=== PATIENT | female | born 1955 | race Caucasian/White ===

== ENCOUNTER → 2016-09-10 | Outpatient (CLI) | payer BC ==
[2016-09-10 18:25] LABS: Anion Gap 14 mmol/L; Blood Urea Nitrogen 17 mg/dL (7-17); Calcium 9.8 mg/dL (8.4-10.2); Carbon Dioxide 28 mmol/L (22-30); Chloride 99 mmol/L (98-107); Glucose 128 mg/dL (74-99); Non-African American GFR(MDRD) >60 (>60 ml/min/1.73 sqM); Potassium 4.2 mmol/L (3.5-5.1); Sodium 141 mmol/L (137-145)
[2016-09-10 18:32] LABS: INR 1.1 (<1.1); Prothrombin Time 10.8 sec (9.0-12.0)
== END ==
LOC: LABWHC1 17:18
PROVIDERS: ATTEND Radiology Diagnostic Radiology
DX: C64.9 Malignant neoplasm of unspecified kidney, except renal pelvis (principal)
CPT/HCPCS: 36415; 80048; 85610

== ENCOUNTER → 2016-11-13 | Outpatient (CLI) | payer BC ==
[2016-11-13 08:18] LABS: CH 31.8; CHCM 33.6; HCT 44.6 % (34.0-46.0); HDW 2.58; HGB 14.4 gm/dL (11.4-16.0); MCH 30.7 pg (25.0-35.0); MCHC 32.4 g/dL (31.0-37.0); Mean Platelet Volume 6.9; RDW 13.7 % (11.5-15.5); WBC 3.8 k/uL (3.8-10.6)
[2016-11-13 08:42] LABS: Appearance,Urine Clear (Clear); Bilirubin,Urine Negative (Negative); Glucose,Urine (UA) Negative (Negative); Ketones,Urine Negative (Negative); Leukocyte Esterase,Urine Negative (Negative); Nitrite,Urine Negative (Negative); PH, Urine 6.5 (5.0-8.0); Protein,Urine Negative (Negative); Specific Gravity,Urine 1.005 (1.001-1.035); UA Billing (MACRO vs. MICRO) CHEM; Urobilinogen,Urine <2.0 mg/dL (<2.0)
[2016-11-13 11:10] LABS: Hemoglobin A1C 6.1 % (4.2-6.1)
[2016-11-13 11:56] LABS: ALT 42 U/L (9-52); AST 29 U/L (14-36); Alkaline Phosphatase 59 U/L (38-126); Anion Gap 9 mmol/L; Blood Urea Nitrogen 12 mg/dL (7-17); Calcium 9.4 mg/dL (8.4-10.2); Carbon Dioxide 29 mmol/L (22-30); Chloride 104 mmol/L (98-107); Cholesterol 193 mg/dL (<200); Creatine Kinase 106 U/L (30-135); Glucose 128 mg/dL (74-99); HDL Cholesterol 61 mg/dL (40-60); Non-African American GFR(MDRD) >60 (>60 ml/min/1.73 sqM); Potassium 4.3 mmol/L (3.5-5.1); Sodium 142 mmol/L (137-145); Total Bilirubin 0.5 mg/dL (0.2-1.3); Total Protein 7.3 g/dL (6.3-8.2); Triglycerides 143 mg/dL (<150)
[2016-11-13 12:58] LABS: Vitamin B12 302 pg/mL (239-931)
== END | disposition home or self-care (01) ==
LOC: LABWHC1 07:49
PROVIDERS: ATTEND Family Medicine
DX: R03.0 Elevated blood-pressure reading, without diagnosis of hypertension (principal); E55.9 Vitamin D deficiency, unspecified; E78.5 Hyperlipidemia, unspecified; M79.89 Other specified soft tissue disorders; Z79.899 Other long term (current) drug therapy; R63.5 Abnormal weight gain
CPT/HCPCS: 36415; 80053; 80061; 81003; 82306; 82550; 82607; 82746; 83036; 83880; 84443; 85027

== ENCOUNTER → 2016-12-03 | Outpatient (CLI) | payer BC ==
--- NOTE | 2016-12-04 09:00 | US ---
EXAMINATION TYPE: US thyroid st tissue head/neck DATE OF EXAM: 12/03/2016 COMPARISON: NONE CLINICAL HISTORY: K11.9 Parathyroid swelling. Disease of salivary gland unspecified, order states att ention to parotid gland Patient states that she has ridge or thickening under ear along jaw line. Order states attention to p arotid gland areas. Scanned right and left parotid area, just below ear. Gland appears thick bilatera lly. There are nodes noted bilaterally, largest on right measuring 2.0cm. IMPRESSION: Nonspecific parotid glandular thickening and heterogeneity. Prominent lymph nodes adjacent to the par otid areas. CT of the neck with contrast is advised.
== END | disposition home or self-care (01) ==
LOC: RADUSWWP 16:49
PROVIDERS: ATTEND Family Medicine
DX: K11.9 Disease of salivary gland, unspecified (principal)
CPT/HCPCS: 76536

== ENCOUNTER → 2016-12-11 | Outpatient (CLI) | payer BC ==
--- NOTE | 2016-12-11 18:21 | CT ---
EXAMINATION TYPE: CT soft tissue neck w con DATE OF EXAM: 12/11/2016 5:06 PM COMPARISON: NONE HISTORY: Abnormal US. Bilateral jaw swelling. CT DLP: 820.00 mGycm Automated exposure control for dose reduction was used. CONTRAST: CT scan of the neck is performed following with IV Contrast, patient injected with 100 mL of Omnipaqu e 300. Axial images are obtained, coronal and sagittal reformatted images are reviewed. FINDINGS: There is a 1 cm hypodensity in the right thyroid lobe consistent with a cyst. Epiglottis is normal. T rachea appears normal. There is normal contrast opacification of the carotid arteries and jugular vei ns. I see no sign of a pharyngeal mass. Parotid glands are symmetric. The submandibular salivary glan ds are fairly symmetric. There are anterior triangle cervical lymph nodes that measure up to 10 mm. P arotid glands are large without a focal defect. Cervical spine is intact. There is narrowing of C5-6 C6-7 disc spaces with endplate spur formation. There is probably some degree of spinal stenosis at C5 -6 and C6-7. There is fairly normal aeration of the visualized paranasal sinuses. I see no bony destr uctive process. Mandible is intact. Maxilla is intact. Epiglottis is normal. IMPRESSION: Spondylotic changes in the lower cervical spine with probably some spinal stenosis at C5-6 and C6-7. Small cyst in the right thyroid lobe. Large symmetric parotid glands consistent with hypertrophy. There are anterior and posterior cervical lymph nodes that measure up to 1 cm of doubtful significance. Right submandibular salivary gland is slightly larger than the left but thought to be within normal variation. There is a 12 mm lymph node anterior to the left parotid gland. There is a 10 mm lymph node at the superior aspect of the right p arotid gland.
== END | disposition home or self-care (01) ==
LOC: RADCTMAIN 16:11
PROVIDERS: ATTEND Family Medicine
DX: K11.8 Other diseases of salivary glands (principal); E04.1 Nontoxic single thyroid nodule; R59.0 Localized enlarged lymph nodes
CPT/HCPCS: 70491; Q9967

== ENCOUNTER → 2017-02-03 | Outpatient (CLI) | payer BC ==
--- NOTE | 2017-02-03 22:15 | CONS ---
REASON FOR CONSULTATION: Sleep apnea. 61 -year-old female patient who is coming in for poor sleep quality. The patient has been evaluated for obstructive sleep apnea back in 2008 and back then her sleep study came back negative for LAURA. AHI was at 4 and AHI during REM was as high as 24. Yet, based on the ( ) the patients overall AHI was less than 5, the patient did not qualify for any treatment. Back then her sleep efficiency was at 68%, took her around 30 minutes to fall asleep. She has frequent arousals. She has abnormal architecture of Stage I and Stage II sleep and diminished REM which was the order of 5%. Over the years, the patient has gained around 22 to 25 pounds. She is still snoring. She grinds on her teeth aggressively and she was given a splint by neurology. At one point, she was also placed on Flexeril which made her more drowsy and sleepy and she ended up quitting. She has migraines headaches. Her other medical problems are hyperlipidemia, hypertriglyceridemia, osteoarthritis and anxiety. Her sleep quality has not been the same for many years. She considers it to be poor. She wakes up frequently in the middle of the night. She denies having any nocturnal chest pain or heartburn or any body aches. She has increased anxiety and she has gotten worse after she lost her father to disease. No restlessness in the lower extremities. No nightmares. No sleep walking or sleep talking. No other parasomnias noted. No nocturnal palpitations. She does to bed around 11 p.m. wakes up at 7:30 a.m. in the morning and takes more than 30 minutes to fall asleep. His past medical history: 1. Hyperlipidemia. 2. Hypertriglyceridemia. 3. Migraines. 4. Osteoarthritis. 5. Anxiety. 6. Grinding of the teeth. Surgical history: Total hysterectomy and left shoulder surgery in 2014. Drug allergies are not known. She is ALLERGIC TO DUST. Outpatient Medication list includes: 1. Zetia. 2. TriCor. 3. Fiorinal with codeine as needed. SOCIAL HISTORY: Nonsmoker. No history of alcohol. No history of IV drugs. FAMILY HISTORY: Negative for sleep apnea. REVIEW OF SYSTEMS: 12 point review of systems was done. All of the positive findings were mentioned above in the history of present illness. BP 140/72. Pulse 94, respiratory rate 16, temperature 98.3, BMI 31.2, weight is 188. Height 5 feet 5 inches and neck size 15 inches. Saturation 95% on room air. General appearance: Short neck, crowding posterior pharynx. There is no goiter or neck masses. Lungs diminished. Otherwise clear. Heart sounds are regular rate and rhythm, normal S1, S2. No S3, no murmurs. Abdomen soft, nontender, no organomegaly. Extremities: No edema, cyanosis or clubbing. IMPRESSION: 1. Poor sleep quality, could be related to a component of obstructive sleep apnea, underlying mild comorbidities cannot be completely ruled out. 2. Grinding. 3. Anxiety. 4. OA. 5. Hypertriglyceridemia. PLAN: 1. Reevaluate this patient with another sleep study to assess the extent of the sleep disturbance and look for sleep architecture and understand the need for any treatment. 2. Reevaluate this patient for obstructive sleep apnea as long as she has gained a significant amount of weight and she had minimal disease back in 2008. 3. Splint for grinding of the teeth. 4. Encourage weight loss. 5. See me back after the screening and we will continue to follow and make further recommendations based on her progress. CAESAR
== END ==
LOC: SLEEP 13:29
PROVIDERS: ATTEND Internal Medicine Critical Care Medicine
DX: E78.5 Hyperlipidemia, unspecified (principal); E78.00 Pure hypercholesterolemia, unspecified; M19.90 Unspecified osteoarthritis, unspecified site; F41.9 Anxiety disorder, unspecified; G43.909 Migraine, unspecified, not intractable, without status migrainosus; G47.63 Sleep related bruxism; G47.10 Hypersomnia, unspecified; Z79.899 Other long term (current) drug therapy
CPT/HCPCS: 99211

== ENCOUNTER 2017-04-20 07:55 | Day surgery (SDC) | payer BC ==
[2017-04-17 09:13] VITALS: BMI 29.9
[~2017-04-20 07:55] MED LIST: LACTATED RINGERS 1,000 ML IV SCH; LIDOCAINE 1% 20 ML VIAL (10MG/ML) FOR IV START INTRADERMA PRN
[2017-04-20 08:11] VITALS: TEMP 98.2
[2017-04-20] MEDS ORDERED: LIDOCAINE 1% INJ 10MG/ML (20 ML MDV) ONE (09:11)
[2017-04-20] MEDS ORDERED: PROPOFOL 10 MG/ML 20 ML VIAL IV ONE (09:11)
--- NOTE | 2017-04-20 09:38 | P.PCN ---
Date of Procedure: 04/20/17 Procedure(s) Performed: Procedure: Total colonoscopy. Preoperative diagnosis: Screening for neoplasia, patient has history of polyps and history of diverticulitis. Postoperative diagnosis: Diverticulosis with no evidence of acute diverticulitis , strictures, polyps or cancer. Preparation: HalfLytely prep. Sedation: Was provided by anesthesia. Brief clinical history: The patient is a 61-year-old female who is scheduled for this evaluation for screening for neoplasia age being her risk factor as well as history of polyps and history of diverticulitis. Her father had colitis. She has no abdominal complaints at this time, bleeding or anemia. Family history of colon cancer in a paternal cousin. Procedure: With the patient on her left lateral decubitus position and after informed consent and adequate sedation, the perianal area was inspected and it did not show any fissures or fistulas. There were no masses felt on digital rectal examination. The Olympus CFQ 160L video colonoscope was then inserted in the rectum in the usual fashion and advanced to the cecum. The mucosa appeared healthy. No polyps or tumors were seen. There was several diverticular orifices seen scattered along the length of the bowel with no evidence of acute diverticulitis or strictures. I retroflexed the endoscope in the rectum before the endoscope was withdrawn. Low-grade internal hemorrhoids were noted with no evidence of bleeding. The patient tolerated the procedure well. Plan: The patient was reassured. Discussed dietary measures. She will follow- up with you as planned and I recommended repeat exam in 5 years.
[2017-04-20 09:41] VITALS: RESP 18
[2017-04-20 09:55] VITALS: PULSE 90
[2017-04-20 10:30] VITALS: BP 166/77
== END 2017-04-20 10:40 | disposition home or self-care (01) ==
LOC: ORWHC2ENDO 07:55
DX: Z12.11 Encounter for screening for malignant neoplasm of colon (principal); K57.30 Diverticulosis of large intestine without perforation or abscess without bleeding; Z86.010 Personal history of colon polyps; Z87.19 Personal history of other diseases of the digestive system; Z80.0 Family history of malignant neoplasm of digestive organs; I10 Essential (primary) hypertension; E78.5 Hyperlipidemia, unspecified; Z79.899 Other long term (current) drug therapy
CPT/HCPCS: J2001; J2704; G0105; 45378

== ENCOUNTER → 2017-07-02 | Outpatient (CLI) | payer BC ==
--- NOTE | 2017-07-03 08:24 | CT ---
EXAMINATION TYPE: CT abdomen wo/w con DATE OF EXAM: 07/02/2017 HISTORY: Neoplasm of Right Kidney. Treatment with cryoablation. CT DLP: 1566.30mGycm Automated Exposure Control for Dose Reduction was Utilized. CONTRAST: CT scan of the abdomen and pelvis is performed with IV Contrast, patient injected with 100 mL of Omni paque 300. COMPARISON: None. FINDINGS: LUNG BASES: No significant abnormality is appreciated. LIVER/GB: There is diffuse hypoattenuation of the hepatic parenchyma compatible with at least moderat e hepatic steatosis with focal fatty sparing around the gallbladder fossa. This limits evaluation for hepatic masses. No intrahepatic biliary ductal dilatation. No evidence of cholelithiasis. PANCREAS: No significant abnormality is seen. SPLEEN: There is redemonstration of a fluid attenuated splenic cystic lesion without enhancement jose l uring 2.4 cm. ADRENALS: No significant abnormality is seen. KIDNEYS: There is a wedge-shaped cortical defect in the area of the prior known renal cell carcinoma at the site of cryoablation within the right inferior lateral pole of the kidney seen on series 7 ирина ge 38 measuring 2.8 x 1.0 cm. This demonstrates minimal enhancement from precontrast image portal kali ous phase of 10 Hounsfield units. This is favored to represent fibrosis as there is more delayed enha ncement with Hounsfield unit increase of 20 comparison to noncontrast images. There is no bulbous con tour to suggest current recurrent. On delayed images this is in close approximation with the minor ca lyces although no calyceal rupture is identified. No perinephric fat stranding is seen. No perirenal fluid collection is noted. No lymphocele or abscess. No evidence of right renal vein thrombosis. The left kidney contains a stable hypoattenuated left upper pole 9 mm lesion that is too small to acc urately characterize but measures simple fluid on noncontrast imaging, likely a renal cyst. A smaller probable cysts also seen of the upper pole posteriorly measuring 6 mm, also similar to the prior exa m from 2016. Punctate 2 mm nonobstructing right lower pole renal calculus is present. No left renal c alculi are noted. No hydronephrosis of either kidney. BOWEL: No significant abnormality is seen. LYMPH NODES: No greater than 1cm abdominal or pelvic lymph nodes are appreciated. OSSEOUS STRUCTURES: No significant abnormality is seen. No suspicious osseous lesions. OTHER: No significant additional abnormality is seen. IMPRESSION: 1. Wedge-shaped defect at the site of cryoablation within the right lateral lower pole with minimal d elayed enhancement suggestive of fibrosis. Surveillance is recommended. No current evidence of recurr ence, renal vein thrombosis, local adenopathy, or suspicious osseous lesion to suggest metastasis. 2. Redemonstration of hepatic steatosis (at least moderate in degree), probable left renal cysts, non obstructing 2 mm right lower pole renal calculus, and benign splenic cyst or lymphangioma.
== END | disposition home or self-care (01) ==
LOC: RADCTMAIN 19:09
PROVIDERS: ATTEND Urology
DX: D49.511 Neoplasm of unspecified behavior of right kidney (principal); N20.0 Calculus of kidney; K76.0 Fatty (change of) liver, not elsewhere classified
CPT/HCPCS: 74170; Q9967

== ENCOUNTER → 2017-08-15 | Outpatient (CLI) | payer BC ==
[2017-08-15 10:16] LABS: Basophils % (A) 1 %; Eosinophils # (A) 0.2 k/uL (0-0.7); Eosinophils % (A) 6 %; HCT 42.1 % (34.0-46.0); Lymphocytes # (A) 1.4 k/uL (1.0-4.8); Lymphocytes % (A) 34 %; MCH 30.9 pg (25.0-35.0); MCHC 33.2 g/dL (31.0-37.0); MCV 92.9 fL (80.0-100.0); Mean Platelet Volume 7.2; Monocytes # (A) 0.2 k/uL (0-1.0); Monocytes % (A) 6 %; Neutrophils % (A) 51 %; Platelet Count 266 k/uL (150-450); RBC 4.53 m/uL (3.80-5.40); RDW 13.7 % (11.5-15.5); WBC 3.9 k/uL (3.8-10.6)
[2017-08-15 10:19] LABS: Appearance,Urine Cloudy (Clear); Bilirubin,Urine Negative (Negative); Blood,Urine Negative (Negative); Color,Urine Light Yellow; Glucose,Urine (UA) Negative (Negative); Ketones,Urine Negative (Negative); Leukocyte Esterase,Urine Moderate (Negative); Mucus,Urine Rare /hpf; Nitrite,Urine Negative (Negative); Protein,Urine Negative (Negative); RBC,Urine 1 /hpf (0-5); Specific Gravity,Urine 1.009 (1.001-1.035); Squamous Epithelial Cell,Urine 2 /hpf (0-4); Urobilinogen,Urine <2.0 mg/dL (<2.0); WBC,Urine 7 /hpf (0-5)
[2017-08-15 11:12] LABS: ALT 44 U/L (9-52); AST 34 U/L (14-36); Albumin 4.5 g/dL (3.5-5.0); Alkaline Phosphatase 54 U/L (38-126); Anion Gap 10 mmol/L; Blood Urea Nitrogen 13 mg/dL (7-17); C Reactive Protein <5.0 mg/L (<10.0); Calcium 9.6 mg/dL (8.4-10.2); Carbon Dioxide 31 mmol/L (22-30); Chloride 101 mmol/L (98-107); Cholesterol 161 mg/dL (<200); Creatine Kinase 100 U/L (30-135); Glucose 124 mg/dL (74-99); HDL Cholesterol 64 mg/dL (40-60); LDL Cholesterol,Calculated 68 mg/dL (0-99); Potassium 4.3 mmol/L (3.5-5.1); Sodium 142 mmol/L (137-145); Total Bilirubin 0.4 mg/dL (0.2-1.3); Total Protein 7.1 g/dL (6.3-8.2); Triglycerides 147 mg/dL (<150)
[2017-08-15 11:25] LABS: T4, Free (Free Thyroxine) 0.71 ng/dL (0.78-2.19)
[2017-08-15 11:36] LABS: Erythrocyte Sedimentation Rate 2 mm/hr (0-20)
[2017-08-15 17:24] LABS: Rheumatoid Factor 6 IU/mL (0-15)
[2017-08-15 17:32] LABS: Thyroid Peroxidase Antibodies 31.4 U/mL (0.0-60.0); Vitamin D 25 Hydroxy 20.4 ng/mL (30.0-100.0)
[2017-08-15 17:42] LABS: Insulin Level 42.5 mIU/mL (3.0-25.0)
[2017-08-15 18:17] LABS: Hepatitis C IgG Antibody Non-Reactive (Non-Reactive)
[2017-08-15 21:20] LABS: Hemoglobin A1C 6.6 % (4.0-6.0)
== END | disposition home or self-care (01) ==
LOC: LABWHC1 09:15
PROVIDERS: ATTEND Family Medicine
DX: Z00.00 Encounter for general adult medical examination without abnormal findings (principal); I10 Essential (primary) hypertension; E78.00 Pure hypercholesterolemia, unspecified; M12.9 Arthropathy, unspecified; R63.5 Abnormal weight gain; Z79.899 Other long term (current) drug therapy; Z11.59 Encounter for screening for other viral diseases
CPT/HCPCS: 36415; 80053; 80061; 81001; 82306; 82533; 82550; 83036; 83525; 83527; 84439; 84443; 84481; 85025; 85652; 86038; 86039; 86140; 86376; 86431; 86803

== ENCOUNTER → 2017-09-16 | Outpatient (CLI) | payer BC ==
--- NOTE | 2017-09-21 10:21 | MM ---
Reason for exam: screening (asymptomatic). Last mammogram was performed 1 year and 3 months ago. History: Patient is postmenopausal. Family history of breast cancer in paternal aunt at age 60. Taking estrogen for 10 years beginning at age 50. Physical Findings: A clinical breast exam by your physician is recommended on an annual basis and results should be correlated with mammographic findings. MG Screening Mammo w CAD Bilateral CC, MLO, and XCCL view(s) were taken. Prior study comparison: July 03, 2016, bilateral MG screening mammo w CAD. June 22, 2015, bilateral MG screening mammo w CAD. There are scattered fibroglandular densities. No significant changes when compared with prior studies. ASSESSMENT: Negative, BI-RAD 1 RECOMMENDATION: Routine screening mammogram of both breasts in 1 year.
== END | disposition home or self-care (01) ==
LOC: RADMAMWWP 10:48
PROVIDERS: ATTEND Family Medicine
DX: Z12.31 Encounter for screening mammogram for malignant neoplasm of breast (principal)
CPT/HCPCS: 77067

== ENCOUNTER → 2017-11-10 | Outpatient (CLI) | payer BC ==
[2017-11-10 09:07] LABS: Anion Gap 14 mmol/L; Blood Urea Nitrogen 18 mg/dL (7-17); Calcium 9.5 mg/dL (8.4-10.2); Carbon Dioxide 27 mmol/L (22-30); Chloride 103 mmol/L (98-107); Glucose 127 mg/dL (74-99); Potassium 4.1 mmol/L (3.5-5.1); Sodium 144 mmol/L (137-145)
[2017-11-10 09:23] LABS: T4, Free (Free Thyroxine) 0.82 ng/dL (0.78-2.19)
[2017-11-10 10:20] LABS: Appearance,Urine Clear (Clear); Bilirubin,Urine Negative (Negative); Blood,Urine Negative (Negative); Color,Urine Light Yellow; Glucose,Urine (UA) Negative (Negative); Ketones,Urine Negative (Negative); Leukocyte Esterase,Urine Negative (Negative); Nitrite,Urine Negative (Negative); Protein,Urine Negative (Negative); Specific Gravity,Urine 1.009 (1.001-1.035); Urobilinogen,Urine <2.0 mg/dL (<2.0)
[2017-11-10 18:01] LABS: Insulin Level 40.9 mIU/mL (3.0-25.0)
[2017-11-10 18:10] LABS: DNA Double-Stranded POSITIVE (NEGATIVE)
[2017-11-10 19:02] LABS: Hemoglobin A1C 6.4 % (4.0-6.0)
[2017-11-11 08:31] LABS: ANA Pattern Speckled
== END | disposition home or self-care (01) ==
LOC: LABWHC1 08:02
PROVIDERS: ATTEND Family Medicine
DX: E11.9 Type 2 diabetes mellitus without complications (principal); E07.9 Disorder of thyroid, unspecified; R76.8 Other specified abnormal immunological findings in serum; E16.1 Other hypoglycemia
CPT/HCPCS: 36415; 80048; 81003; 83036; 83525; 84439; 84443; 86038; 86039; 86225

== ENCOUNTER → 2018-06-15 | Outpatient (CLI) | payer BC, MEDICARE ==
--- NOTE | 2018-06-15 16:07 | PN ---
PROGRESS NOTE Jami is a 63 coming in for an annual check regarding LAURA treatment. She has severe LAURA with an AHI of 43 and currently she is on a APAP minimum 5, maximum of 20. She has been extremely compliant. She continues to benefit from treatment. She missed her CPAP only 1 night over the past 1 year and she felt terrible next day. She tells me that her sleep quality is improved considerably while she has been on treatment. Weight has been stable. She has been diagnosed having diabetes mellitus. Yet despite that, she has not been gaining any weight. Her weight is stable at 193. Based on the compliance data, the patient has been averaging around 7 hours of APAP use per night. Her CPAP use for more than 4 hours is 100%. Her average CPAP pressure is around 10.5 cm of water. Leak factor is 8 L and AHI while on treatment is down to 0.8, [place] score is at 3. REVIEW OF SYSTEMS: A 12-point review of system was done. Positive for new onset diabetes mellitus. No nocturia. No neuropathy. She has occasional migraines which are well controlled for now, no significant anxiety or depression. No degenerative arthritis. No nocturnal heartburn, chest pain, sinus disease or shortness of breath. PHYSICAL EXAMINATION: BP is 160/70, pulse 100, respirations 16, temperature 98.8. Saturation 98% on room air. Height is 5 feet 5 inches, weight is 193, BMI 32.1. [place] score is at 3. General appearance: Calm, comfortable. Obese. Head is atraumatic, normocephalic. Neck is short, supple. Crowding of the posterior pharynx is present. Mallampati class 4. No goiter or neck masses. LUNGS: Clear to auscultation. HEART: Sounds are regular. Normal S1, S2. No S3, S4. No murmurs. ABDOMEN: Soft, nontender. No organomegaly. EXTREMITIES: No edema. No cyanosis or clubbing. Neurological: Alert and oriented times three. No focal neurological deficits. PSYCHIATRIC: Negative for anxiety or depression. IMPRESSION: 1. Severe symptomatic obstructive sleep apnea, AHI of 43.6, currently on APAP successfully treated. 2. Hypersomnia, recovered. 3. Bruxism wearing a bite guard. 4. Migraines inactive and stable. 5. Anxiety. 6. Hyperlipidemia. 7. Degenerative arthritis. PLAN: 1. Continue APAP. Same settings. 2. Dream Wear medium-size nose mask. 3. Encourage weight loss. Weight has been stable for now. 4. Patient continues to benefit, will continue to follow. MMODL / IJN: [id number] /
== END | disposition home or self-care (01) ==
LOC: SLEEP 14:46
PROVIDERS: ATTEND Internal Medicine Critical Care Medicine
DX: G47.33 Obstructive sleep apnea (adult) (pediatric) (principal); G47.63 Sleep related bruxism; G43.909 Migraine, unspecified, not intractable, without status migrainosus; F41.9 Anxiety disorder, unspecified; E78.5 Hyperlipidemia, unspecified; M19.90 Unspecified osteoarthritis, unspecified site; Z99.89 Dependence on other enabling machines and devices

== ENCOUNTER → 2018-08-18 | Outpatient (CLI) | payer MEDICARE ==
[2018-08-18 16:07] LABS: LDL Cholesterol,Calculated 107.8 mg/dL (0.0-131.0); Magnesium 2.1 mg/dL (1.5-2.4); VLDL Calculation 32.2 mg/dL (5.00-40.00)
== END | disposition home or self-care (01) ==
LOC: LABWHC1 08:59
PROVIDERS: ATTEND Family Medicine
DX: E34.9 Endocrine disorder, unspecified (principal); E78.5 Hyperlipidemia, unspecified; Z79.899 Other long term (current) drug therapy
CPT/HCPCS: 36415; 80061; 82626; 83735; 84481

== ENCOUNTER → 2018-09-22 | Outpatient (CLI) | payer MEDICARE ==
[2018-09-22 15:26] VITALS: BMI 31.6
== END ==
LOC: DBWHC3 11:56
PROVIDERS: ATTEND Family Medicine
DX: E11.9 Type 2 diabetes mellitus without complications (principal)
CPT/HCPCS: G0109 ×2

== ENCOUNTER → 2018-09-22 | Outpatient (CLI) | payer MEDICARE ==
--- NOTE | 2018-09-23 03:50 | BD ---
EXAMINATION TYPE: Axial Bone Density DATE OF EXAM: 09/22/2018 COMPARISON: NONE CLINICAL HISTORY: 63-year-old female postmenopausal screening Height: 65 Weight: 192.8 FRAX RISK QUESTIONS: Alcohol (3 or more units per day): no Family History (Parent hip fracture): no Glucocorticoids (More than 3mos): no (Ex: prednisone, prednisolone, methylprednisolone, dexamethasone, and hydrocortisone). History of Fracture in Adulthood: no Secondary Osteoporosis: 1. Type 1 Diabetes: no 2. Hyperthyroidism: no 3. Menopause before 45: 4. Malnutrition: no 5. Chronic liver disease: no Rheumatoid Arthritis: no Current Tobacco Use: no RISK FACTORS HISTORY OF: Family History of Osteoporosis: no Active: yes Diet low in dairy products/other sources of calcium: yes Postmenopausal woman: Take estrogen and/or progesterone medications: yes How long: since 2004 Lost more than 2 inches in height since high school: no MEDICATIONS: metformin, migraine med, amlodipine, hrt, cholesterol meds Additional History: EXAM MEASUREMENTS: Bone mineral densitometry was performed using the [email or web address] System. Bone mineral density as measured about the Lumbar spine is: ----- L1-L4(G/cm2): 1.359 T Score Values are as follows: ----- L2: 0.7 ----- L3: 1.9 ----- L4: 2.1 ----- L1-L4: 1.5 Bone mineral density : baseline Bone mineral density about the R hip (g/cm2): 0.882 Bone mineral density about the L hip (g/cm2): 0.894 T Score values are as follows: -----R Neck: -1.1 -----L Neck: -1.0 -----R Total: -0.2 -----L Total: 0.3 Bone mineral density : baseline IMPRESSION: Osteopenia (T Score between -2.5 and -1). There is slightly increased risk of fracture and the patient may be considered for treatment. Re-Screen 2-5 years. NOTE: T-SCORE=SD OF THE YOUNG ADULT MEAN.
--- NOTE | 2018-09-24 10:14 | MM ---
Reason for exam: screening (asymptomatic). Last mammogram was performed 1 year ago. History: Patient is postmenopausal and has history of other cancer at age 61. Family history of breast cancer in paternal aunt at age 60. Taking estrogen for 10 years beginning at age 50. Physical Findings: A clinical breast exam by your physician is recommended on an annual basis and results should be correlated with mammographic findings. MG 3D Screening Mammo W/Cad Bilateral CC and MLO view(s) were taken. Prior study comparison: September 16, 2017, bilateral MG screening mammo w CAD. July 03, 2016, bilateral MG screening mammo w CAD. There are scattered fibroglandular densities. 5mm circumscribed nodularity 8-9 o'clock central left breast is better seen on 3D images but was subtly present on the 2018 CC view. No significant changes when compared with prior studies. ASSESSMENT: Benign, BI-RAD 2 RECOMMENDATION: Routine screening mammogram of both breasts in 1 year.
== END | disposition home or self-care (01) ==
LOC: RADMAMWWP 14:52
PROVIDERS: ATTEND Family Medicine
DX: Z12.31 Encounter for screening mammogram for malignant neoplasm of breast (principal); M85.851 Other specified disorders of bone density and structure, right thigh; M85.852 Other specified disorders of bone density and structure, left thigh; Z78.0 Asymptomatic menopausal state
CPT/HCPCS: 77063; 77067; 77080

== ENCOUNTER → 2019-01-21 | Outpatient (CLI) | payer MEDICARE ==
[2019-01-21 08:19] LABS: Basophils % (A) 0 %; Eosinophils # (A) 0.2 k/uL (0-0.7); Eosinophils % (A) 1 %; HCT 40.6 % (34.0-46.0); HGB 13.2 gm/dL (11.4-16.0); Lymphocytes # (A) 1.1 k/uL (1.0-4.8); Lymphocytes % (A) 8 %; MCHC 32.6 g/dL (31.0-37.0); Mean Platelet Volume 7.2; Monocytes # (A) 0.6 k/uL (0-1.0); Monocytes % (A) 4 %; Neutrophils # (A) 12.3 k/uL (1.3-7.7); Neutrophils % (A) 86 %; Platelet Count 364 k/uL (150-450); RBC 4.41 m/uL (3.80-5.40); RDW 13.5 % (11.5-15.5); WBC 14.2 k/uL (3.8-10.6)
[2019-01-21 16:52] LABS: African American GFR (CKD) 89.7 (60.0-200.0); Albumin 4.8 g/dL (3.80-4.90); Albumin/Globulin Ratio 2.67 (1.60-3.17); Anion Gap 9.3 mmol/L (4.00-12.00); Calcium 9.8 mg/dL (8.7-10.3); Carbon Dioxide 25.7 mmol/L (21.6-31.8); Globulin 1.8 g/dL (1.6-3.3); LDL Cholesterol,Calculated 71.6 mg/dL (0.0-131.0); Potassium 4.1 mmol/L (3.5-5.5); Total Bilirubin 0.6 mg/dL (0.2-1.2); Total Protein 6.6 g/dL (6.2-8.2); VLDL Calculation 17.4 mg/dL (5.00-40.00)
[2019-01-21 19:33] LABS: Hemoglobin A1C 6.2 % (4.0-6.0)
== END ==
LOC: LABWHC1 07:47
PROVIDERS: ATTEND Psychiatry & Neurology Neurology
DX: Z00.00 Encounter for general adult medical examination without abnormal findings (principal); E78.5 Hyperlipidemia, unspecified; E11.9 Type 2 diabetes mellitus without complications; T50.995A Adverse effect of other drugs, medicaments and biological substances, initial encounter
CPT/HCPCS: 36415; 80053; 80061; 83036; 85025

== ENCOUNTER → 2019-05-24 | Outpatient (CLI) | payer MEDICARE ==
[2019-05-24 09:02] LABS: Basophils % (A) 1 %; Eosinophils # (A) 0.5 k/uL (0-0.7); Eosinophils % (A) 10 %; HCT 40.6 % (34.0-46.0); HGB 13.3 gm/dL (11.4-16.0); Lymphocytes # (A) 1.5 k/uL (1.0-4.8); Lymphocytes % (A) 32 %; MCH 30.7 pg (25.0-35.0); MCHC 32.8 g/dL (31.0-37.0); MCV 93.6 fL (80.0-100.0); Mean Platelet Volume 6.2; Monocytes # (A) 0.2 k/uL (0-1.0); Monocytes % (A) 4 %; Neutrophils # (A) 2.3 k/uL (1.3-7.7); Neutrophils % (A) 52 %; Platelet Count 311 k/uL (150-450); RBC 4.34 m/uL (3.80-5.40); RDW 13.4 % (11.5-15.5); WBC 4.5 k/uL (3.8-10.6)
[2019-05-24 16:01] LABS: T4, Free (Free Thyroxine) 1.1 ng/dL (0.80-1.80)
[2019-05-24 16:03] LABS: Albumin 4.7 g/dL (3.80-4.90); Albumin/Globulin Ratio 2.61 (1.60-3.17); Anion Gap 10.2 mmol/L (4.00-12.00); BUN/Creat Ratio 26.25 Ratio (12.00-20.00); Calcium 9.8 mg/dL (8.7-10.3); Carbon Dioxide 26.8 mmol/L (21.6-31.8); Chol/HDL Ratio 2.75; Globulin 1.8 g/dL (1.6-3.3); LDL Cholesterol,Calculated 105.6 mg/dL (0.0-131.0); Potassium 4.1 mmol/L (3.5-5.5); Total Bilirubin 0.4 mg/dL (0.2-1.2); Total Protein 6.5 g/dL (6.2-8.2); VLDL Calculation 15.4 mg/dL (5.00-40.00)
[2019-05-24 17:50] LABS: Hemoglobin A1C 5.8 % (4.0-6.0)
== END | disposition home or self-care (01) ==
LOC: LABWHC1 08:27
PROVIDERS: ATTEND Internal Medicine
DX: I10 Essential (primary) hypertension (principal); E78.5 Hyperlipidemia, unspecified; E11.9 Type 2 diabetes mellitus without complications
CPT/HCPCS: 36415; 80053; 80061; 82043; 82550; 82570; 83036; 84439; 84443; 85025

== ENCOUNTER → 2019-06-23 | Outpatient (CLI) | payer MEDICARE ==
--- NOTE | 2019-06-23 14:26 | US ---
EXAMINATION TYPE: US kidneys/renal and bladder DATE OF EXAM: 06/23/2019 COMPARISON: CT 07/02/17 CLINICAL HISTORY: D41.01 uncertain behavior of R kidney N28.1 renal. Rt renal neoplasm treated with c ryoablation. EXAM MEASUREMENTS: Right Kidney: 10.4 x 6.1 x 5.1 cm Left Kidney: 13.0 x 6.6 x 6.3 cm Post Void Residual Volume: 227.1 mL Right Kidney: No hydronephrosis or masses seen. Cortical defect with retraction seen inferior lateral area which corresponds to the prior area of cryoablation within compared to the CT of 07/02/2017. Left Kidney: 0.7 x 0.6 x 0.7 cm upper pole probable cyst Bladder: wnl Bilateral Jets seen: Yes Normal Post Void Residual: No There is no evidence for hydronephrosis at this point in time. No nephrolithiasis is seen. The urin yamini bladder is anechoic. Bilateral ureteral jets are seen. IMPRESSION: 1. Wedge-shaped defect of the inferior lateral right renal cortex at the area of prior cryoablation. No new adjacent suspicious mass or new convex border. Of note on the prior CT of 06/24/2017 there was some minimal enhancement at the area of probable fibrosis. CT with and without contrast could assess for any further progression of enhancement. 2. Small 7 mm left renal lesion, likely a renal cyst. This was not seen on the prior of 07/01/2017.
== END | disposition home or self-care (01) ==
LOC: RADUSWWP 13:37
PROVIDERS: ATTEND Urology
DX: N28.89 Other specified disorders of kidney and ureter (principal); D41.01 Neoplasm of uncertain behavior of right kidney
CPT/HCPCS: 76770

== ENCOUNTER → 2019-12-27 | Outpatient (CLI) | payer MEDICARE ==
--- NOTE | 2019-12-28 08:21 | MM ---
Reason for exam: screening (asymptomatic). Last mammogram was performed 1 year and 3 months ago. History: Patient is postmenopausal and has history of other cancer at age 61. Family history of breast cancer in paternal aunt at age 60. Taking estrogen for 14 years beginning at age 50. Physical Findings: A clinical breast exam by your physician is recommended on an annual basis and results should be correlated with mammographic findings. MG 3D Screening Mammo W/Cad Bilateral CC and MLO view(s) were taken. Prior study comparison: September 22, 2018, bilateral MG 3d screening mammo w/cad. September 16, 2017, bilateral MG screening mammo w CAD. The breast tissue is heterogeneously dense. This may lower the sensitivity of mammography. There is no discrete abnormality. No significant changes when compared with prior studies. ASSESSMENT: Negative, BI-RAD 1 RECOMMENDATION: Routine screening mammogram of both breasts in 1 year.
== END | disposition home or self-care (01) ==
LOC: RADMAMWWP 09:46
PROVIDERS: ATTEND Family Medicine
DX: Z12.31 Encounter for screening mammogram for malignant neoplasm of breast (principal)
CPT/HCPCS: 77063; 77067

== ENCOUNTER → 2020-01-04 | Outpatient (CLI) | payer MEDICARE ==
[2020-01-04 08:49] LABS: Basophils % (A) 1 %; Eosinophils # (A) 0.5 k/uL (0-0.7); Eosinophils % (A) 11 %; HCT 40.9 % (34.0-46.0); HGB 13.7 gm/dL (11.4-16.0); Lymphocytes # (A) 1.5 k/uL (1.0-4.8); Lymphocytes % (A) 32 %; MCH 31.5 pg (25.0-35.0); MCHC 33.4 g/dL (31.0-37.0); MCV 94.2 fL (80.0-100.0); Mean Platelet Volume 7.7; Monocytes # (A) 0.2 k/uL (0-1.0); Monocytes % (A) 5 %; Neutrophils # (A) 2.3 k/uL (1.3-7.7); Neutrophils % (A) 50 %; Platelet Count 284 k/uL (150-450); RBC 4.34 m/uL (3.80-5.40); RDW 13.8 % (11.5-15.5); WBC 4.6 k/uL (3.8-10.6)
[2020-01-04 19:11] LABS: Albumin 4.8 g/dL (3.80-4.90); Albumin/Globulin Ratio 2.53 (1.60-3.17); Anion Gap 10.1 mmol/L (4.00-12.00); Calcium 9.5 mg/dL (8.7-10.3); Carbon Dioxide 26.9 mmol/L (21.6-31.8); Chol/HDL Ratio 1.83; Globulin 1.9 g/dL (1.6-3.3); Non-African American GFR(CKD) 76.8 (60.0-200.0); Potassium 4.1 mmol/L (3.5-5.5); Total Bilirubin 0.5 mg/dL (0.2-1.2); Total Protein 6.7 g/dL (6.2-8.2)
[2020-01-04 19:21] LABS: Hemoglobin A1C 5.9 % (4.0-6.0)
[2020-01-04 23:37] LABS: Urine Creatinine 15.4 mg/dL
== END | disposition home or self-care (01) ==
LOC: LABWHC1 07:59
PROVIDERS: ATTEND Internal Medicine
DX: Z00.00 Encounter for general adult medical examination without abnormal findings (principal); E11.9 Type 2 diabetes mellitus without complications; E78.2 Mixed hyperlipidemia
CPT/HCPCS: 36415; 80053; 80061; 82043; 82570; 83036; 84443; 85025

== ENCOUNTER → 2020-01-10 | Outpatient (CLI) | payer MEDICARE ==
--- NOTE | 2020-01-10 23:20 | PN ---
PROGRESS NOTE This is a 64-year-old female patient with known history of severe obstructive sleep apnea coming in for an annual check. Doing well. She has lost a considerable amount of weight in the order of 21 pounds. She is very compliant with her CPAP. She is unable to go to sleep without it. Even while taking short naps, she is using her CPAP as the patient is able to breathe better and she is able to get more rest while wearing her CPAP. She is on an APAP mode, minimum pressure of 5, maximum pressure of 20. She is averaging around 7.5 hours of CPAP use per night. Her CPAP use for more than 4 hours is 100% AHI is down to 0.5 while on treatment. Her average pressure utilized with the CPAP is 8.3. Leak is 12 L/minute. She is using a DreamWear nose mask. She is diabetic and she has hyperlipidemia. No angina. No palpitation. No chest pain. No hypersomnia or sleepiness. She has no specific complaints otherwise for now. She has bought a cleaning kit for her CPAP. Her Whittier score is down to 3. REVIEW OF SYSTEMS: Fourteen-point review of system was done. Positive findings were mentioned in history of present illness. Significant for successful CPAP use without any side effects and the patient is continuing to lose weight. PHYSICAL EXAMINATION: VITAL SIGNS: BP is 125/70, pulse 92, respirations 16, temperature 98.6, saturation 95% on room air. Height is 5 feet 5 inches, weight is 172, BMI 28.1. GENERAL APPEARANCE: Calm, comfortable. HEAD: Atraumatic, normocephalic. NECK: Supple. There is no JVD. No goiter or neck masses. LUNGS: Clear to auscultation. HEART: Heart sounds are regular rate and rhythm. Normal S1, S2. No S3, S4. . No murmurs. ABDOMEN: Soft, nontender. No organomegaly. EXTREMITIES: No edema. No cyanosis or clubbing. NEUROLOGIC: Awake and alert. There is no focal neurological deficits. PSYCHIATRIC: Negative for anxiety or depression. IMPRESSION: 1. Severe obstructive sleep apnea with an AHI of 43, successfully treated with an APAP, minimum pressure of 5 maximum pressure of 20. 2. Hypersomnia, recovered. Whittier score is down to 3 and the patient is responding nicely and she has excellent clinical response to CPAP therapy. 3. Diabetes mellitus. 4. Hyperlipidemia. 5. Chronic anxiety. PLAN: 1. Continue and encourage further weight loss. 2. Monitor the average pressure utilized with the machine. The patient's average pressure is down to 8.3, and this is consistent with the ongoing weight loss. 3. Renew the supplies, which include a DreamWear nose mask, medium size. In addition to a heated tubing and filters. 4. Treatment is successful. See me back in a few year's time in followup. MMODL / IJN: [id number] /
== END | disposition home or self-care (01) ==
LOC: SLEEP 13:05
PROVIDERS: ATTEND Internal Medicine Critical Care Medicine
DX: G47.33 Obstructive sleep apnea (adult) (pediatric) (principal); E11.9 Type 2 diabetes mellitus without complications; E78.5 Hyperlipidemia, unspecified; F41.8 Other specified anxiety disorders

== ENCOUNTER → 2020-08-22 | Outpatient (CLI) | payer MEDICARE ==
[2020-08-22 20:19] LABS: Basophils # (A) 0.07 X 10*3/uL (0.00-0.10); Basophils % (A) 1.2 %; Eosinophils # (A) 0.58 X 10*3/uL (0.04-0.35); Eosinophils % (A) 10.3 %; HCT 40.9 % (37.2-46.3); HGB 13.4 g/dL (12.0-15.0); Lymphocytes # (A) 1.68 X 10*3/uL (0.90-5.00); Lymphocytes % (A) 29.8 %; MCH 30.9 pg (27.0-32.0); MCHC 32.8 g/dL (32.0-37.0); MCV 94.2 fL (80.0-97.0); Mean Platelet Volume 10.7 fL (9.5-12.2); Monocytes # (A) 0.37 X 10*3/uL (0.20-1.00); Monocytes % (A) 6.6 %; Neutrophils # (A) 2.91 X 10*3/uL (1.80-7.70); Neutrophils % (A) 51.7 %; Platelet Count 346 X 10*3/uL (140-440); RBC 4.34 X 10*6/uL (4.10-5.20); RDW 12.9 % (11.5-14.5); WBC 5.63 X 10*3/uL (4.50-10.00)
[2020-08-22 21:20] LABS: African American GFR (CKD) 88.4 (60.0-200.0); Albumin 5.2 g/dL (3.80-4.90); Albumin/Globulin Ratio 3.25 (1.60-3.17); Anion Gap 9.5 mmol/L (4.00-12.00); BUN/Creat Ratio 18.75 Ratio (12.00-20.00); Calcium 9.6 mg/dL (8.7-10.3); Carbon Dioxide 29.5 mmol/L (21.6-31.8); Globulin 1.6 g/dL (1.6-3.3); Non-African American GFR(CKD) 76.3 (60.0-200.0); Total Bilirubin 0.4 mg/dL (0.2-1.2); Total Protein 6.8 g/dL (6.2-8.2)
[2020-08-22 21:21] LABS: Chol/HDL Ratio 2.26; LDL Cholesterol,Calculated 71.4 mg/dL (0.0-131.0); VLDL Calculation 19.6 mg/dL (5.00-40.00)
== END | disposition home or self-care (01) ==
LOC: LABWHC1 08:14
PROVIDERS: ATTEND Internal Medicine
DX: I10 Essential (primary) hypertension (principal); E11.9 Type 2 diabetes mellitus without complications; E78.2 Mixed hyperlipidemia
CPT/HCPCS: 36415; 80053; 80061; 82043; 82570; 83036; 84443; 85025

== ENCOUNTER → 2020-12-07 | Outpatient (CLI) | payer MEDICARE ==
[2020-12-07 10:56] LABS: Anion Gap 6 mmol/L; Blood Urea Nitrogen 14 mg/dL (7-17); Carbon Dioxide 30 mmol/L (22-30); Chloride 101 mmol/L (98-107); Glucose 118 mg/dL (74-99); Potassium 4.2 mmol/L (3.5-5.1); Sodium 137 mmol/L (137-145)
[2020-12-07 10:57] LABS: African American GFR (CKD) >90 (>60 ml/min/1.73 sqM); Calcium 10.1 mg/dL (8.4-10.2); Non-African American GFR(CKD) >90 (>60 ml/min/1.73 sqM)
--- NOTE | 2020-12-07 13:48 | CT ---
EXAMINATION TYPE: CT abdomen wo/w con DATE OF EXAM: 12/07/2020 HISTORY: Neoplasm of uncertain behavior of right kidney CT DLP: 1789mGycm Automated Exposure Control for Dose Reduction was Utilized. CONTRAST: CT scan of the abdomen is performed with oral and without and with IV Contrast, patient injected with 100 ml mL of Isovue 300. COMPARISON: Prior CT abdomen July 02, 2017 FINDINGS: LUNG BASES: No significant abnormality is appreciated. LIVER/GB: Liver remains heterogeneously hypodense on noncontrast images consistent with diffuse fatty infiltration. PANCREAS: No significant abnormality is seen. SPLEEN: Stable in size 2.3 cm thin-walled cystic lesion anterior spleen axial image 23. Lesion has so me new curvilinear wall calcifications axial image 22. ADRENALS: No significant abnormality is seen. KIDNEYS: Persistent focal wedge-shaped cortical volume loss mid to lower pole level laterally right k idney at site of prior neoplasm. Stable 5 low dense tissue at this level. There is new 8 mm calculus in the adjacent lower pole calyx axial image 48 series 3. New 4 mm nonobstructing calculus lower pole calyx left kidney coronal series 12 image 56. There is symmetric cortical medullary uptake and excre tion from both kidneys without hydronephrosis seen bilaterally. Tiny hypodense areas of low signal on delayed phased images upper pole left kidney too small to further characterize presumed benign for r eference series 11 image 32. BOWEL: Oral contrast does not reach distal ileal bowel loops. No suspicious bowel dilatation. Some di verticula in the left colon are redemonstrated. No CT evidence for acute diverticulitis. LYMPH NODES: No greater than 1cm abdominal lymph nodes are appreciated. OSSEOUS STRUCTURES: No significant abnormality is seen. OTHER: No significant additional abnormality is seen. IMPRESSION: No suspicious enlarging enhancing soft tissue or new concerning mass or adenopathy to sug gest active neoplastic recurrence. New nonobstructing bilateral renal calculi noted.
== END | disposition home or self-care (01) ==
LOC: RADCTMAIN 09:36
PROVIDERS: ATTEND Urology
DX: D41.01 Neoplasm of uncertain behavior of right kidney (principal); N20.0 Calculus of kidney
CPT/HCPCS: 80048; 74170; 36415; Q9967

== ENCOUNTER → 2020-12-28 | Outpatient (CLI) | payer MEDICARE ==
--- NOTE | 2020-12-29 07:25 | XR ---
EXAMINATION TYPE: XR KUB DATE OF EXAM: 12/28/2020 COMPARISON: NONE HISTORY: Pain TECHNIQUE: Single supine KUB image of the abdomen is obtained FINDINGS: Small bowel demonstrates no evidence for dilatation or air fluid levels. Gas and fecal material is seen in non-distended colon. No convincing evidence for pneumoperitoneum. No unusual calcifications. The lung bases are clear. The osseous structures are intact. IMPRESSION: 1. Overall nonobstructive bowel gas pattern.
== END | disposition home or self-care (01) ==
LOC: RADXRMAIN 17:07
PROVIDERS: ATTEND Urology
DX: R10.9 Unspecified abdominal pain (principal)
CPT/HCPCS: 74018

== ENCOUNTER → 2021-01-15 | Outpatient (CLI) | payer MEDICARE ==
--- NOTE | 2021-01-15 16:01 | PN ---
PROGRESS NOTE This is a 65-year-old female patient with known history of obstructive sleep apnea coming in for an annual check regarding her LAURA. The patient is known to have severe disease with an AHI of 43.6. Doing well. Still using her CPAP unit. She has an APAP unit, pressure minimum of 5, maximum of 20. She is very compliant and she is using her machine every night. She has gained around 15 pounds since her last evaluation. In fact, her weight fluctuates. She was as high as 193 down to 172 and currently is up to 187. She is using her machine every night. Based on the compliance data, her usage for more than 4 hours is 100% with an average usage of 7.8 hours. P90 pressures 10.1. The patient's leak is at 2 L/minute. AHI is down to 1. She is using the DreamWear [id number] mask. [place] score is at 6. No angina. No palpitations. No chest pain. No shortness of breath. She is diabetic. REVIEW OF SYSTEMS: Fourteen-point review of system was done. Positive findings are mentioned in history of present illness. MEDICATIONS: Includes metformin, Lipitor, fenofibrate, amlodipine, Effexor, losartan and Astelin nasal spray and Xanax on a p.r.n. basis. BP is 134/75, pulse 84, respirations 16, temperature 98.8. Saturation 96% on room air. Height is 5 feet 5 inches, weight is 187 and BMI is 30.6. General appearance: Obese, calm and comfortable. Head atraumatic. Normocephalic. Neck is supple. No JVD. No goiter or neck mass. Mallampati class 4. Micrognathia. Lungs clear to auscultation. Heart sounds are regular rate and rhythm. Normal S1, S2. No S3, S4. No murmurs. Abdomen soft. Nontender. No organomegaly. Extremities: No edema. No cyanosis, clubbing. Neurologic: Awake, alert and oriented times three. There is no focal neurological deficits. IMPRESSION: 1. Severe obstructive sleep apnea with an AHI of 43. Currently on an APAP with successful treatment. 2. Hypersomnia recovered. [place] score is down to 6. 3. Diabetes mellitus. 4. Hyperlipidemia. 5. Hypertension. 6. Obesity with fluctuating weight. BMI 30.6. Current body weight is 187. PLAN: 1. Continue APAP therapy at same level of pressure. 2. Keep the DreamWear under the nose nasal mask. I also offered the patient an N30 nasal mask as an alternative mask to try. 3. Encourage weight loss. 4. Implement good sleep hygiene measures. 5. Treat comorbidities with primary care. 6. See me back in a year's time. Treatment successful. MMDESHAUNL / IJN: [id number] /
== END ==
LOC: SLEEP 14:41
PROVIDERS: ATTEND Internal Medicine Critical Care Medicine
DX: G47.33 Obstructive sleep apnea (adult) (pediatric) (principal); E11.9 Type 2 diabetes mellitus without complications; E66.9 Obesity, unspecified; E78.5 Hyperlipidemia, unspecified; I10 Essential (primary) hypertension; Z68.30 Body mass index [BMI] 30.0-30.9, adult; Z79.84 Long term (current) use of oral hypoglycemic drugs; Z79.899 Other long term (current) drug therapy; Z99.89 Dependence on other enabling machines and devices

== ENCOUNTER → 2021-03-14 | Outpatient (CLI) | payer MEDICARE ==
--- NOTE | 2021-03-18 09:41 | MM ---
Reason for exam: screening (asymptomatic). Last mammogram was performed 1 year and 3 months ago. History: Patient is postmenopausal and has history of other cancer at age 61. Family history of breast cancer in paternal aunt at age 60. Took estrogen for 14 years beginning at age 50. Physical Findings: A clinical breast exam by your physician is recommended on an annual basis and results should be correlated with mammographic findings. MG 3D Screening Mammo W/Cad Bilateral CC and MLO view(s) were taken. Prior study comparison: December 27, 2019, bilateral MG 3d screening mammo w/cad. September 22, 2018, bilateral MG 3d screening mammo w/cad. September 16, 2017, bilateral MG screening mammo w CAD. July 03, 2016, bilateral MG screening mammo w CAD. There are scattered fibroglandular densities. No significant changes when compared with prior studies. ASSESSMENT: Negative, BI-RAD 1 RECOMMENDATION: Routine screening mammogram of both breasts in 1 year.
== END | disposition home or self-care (01) ==
LOC: RADMAMWWP 10:25
PROVIDERS: ATTEND Internal Medicine
DX: Z12.31 Encounter for screening mammogram for malignant neoplasm of breast (principal); Z78.0 Asymptomatic menopausal state; Z85.9 Personal history of malignant neoplasm, unspecified; Z80.3 Family history of malignant neoplasm of breast
CPT/HCPCS: 77063; 77067

== ENCOUNTER → 2021-05-15 | Outpatient (CLI) | payer MEDICARE ==
--- NOTE | 2021-05-15 13:59 | XR ---
EXAM TYPE: LUMBAR SPINE X RAY SERIES COMPARISON: NONE HISTORY: Low back pain TECHNIQUE: 3 views are submitted. FINDINGS: Alignment is anatomic. The pedicles are intact. The transverse processes are intact. Marked face t arthropathy involving the L3-S1 levels with multilevel mild degenerative disc disease most marked a t L2-L3 with anterior spurring. Slight anterolisthesis of L3 on 4 and L4 on L5. IMPRESSION: 1. Multilevel degenerative disc disease with severe facet arthropathy at levels L3-S1 as discussed ab ove. Consider follow-up MRI. Suspect foraminal encroachment at L3-4, L4-5 and L5-S1 levels.
== END | disposition home or self-care (01) ==
LOC: RADXRMAIN 13:35
PROVIDERS: ATTEND Internal Medicine
DX: M51.37 Other intervertebral disc degeneration, lumbosacral region (principal); M47.817 Spondylosis without myelopathy or radiculopathy, lumbosacral region
CPT/HCPCS: 72100

== ENCOUNTER → 2021-07-22 | Outpatient (CLI) | payer MEDICARE ==
--- NOTE | 2021-07-22 15:00 | MR ---
EXAMINATION TYPE: MR lumbar spine wo con DATE OF EXAM: 07/22/2021 COMPARISON: CT abdomen December 07, 2020 HISTORY: Low back pain for years TECHNIQUE: Multiplanar, multisequence imaging of the lumbar spine is performed without IV contrast. FINDINGS: Sagittal images of the lumbar spine show vertebral body heights and alignment to remain sat isfactory. Multilevel disc desiccation but the disc space heights are fairly well maintained. The co nus medullaris is normal in position and signal ending mid L1 level. The bone marrow signal intensit y is within normal limits. Axial images show T12-L1, L1-L2, and L2-L3 levels to appear within normal limits. Axial images at L3-L4 level show skom-xx-vmhydozo facet degenerative changes bilaterally with ligamen ry flavum hypertrophy. No significant disc herniation. Bilateral neural foramina are patent. Spinal canal is preserved. Axial images at L4-L5 level show moderate to advanced facet degenerative changes and ligamentum flavu m hypertrophy causing posterior lateral thecal sac. No significant disc herniation. Mild right greate r than left bilateral neural foraminal narrowing is present. Axial images at L5-S1 level shows moderate facet arthropathy bilaterally. Spinal canal preserved. Pos terior increased signal or annular tear is seen. Bilateral neural foramina are patent. Paraspinal muscle bulk is maintained. IMPRESSION: Multilevel facet arthropathy mid to lower lumbar spine.
--- NOTE | 2021-07-23 00:49 | MR ---
EXAMINATION TYPE: MR knee RT wo con DATE OF EXAM: 07/22/2021 COMPARISON: None HISTORY: Right knee pain and swelling Multiplanar multiecho imaging of the right knee without contrast. The anterior and posterior cruciate ligaments are intact. There is mild knee joint effusion. The kevin ateral ligaments are intact . Lateral meniscus is intact. Medial meniscus is intact. There is minimal spurring on the patella. Th e patella tendon is intact. I see no bony destructive process. There is mild narrowing of the medial joint space of the knee. There is 1.5 cm popliteal cyst. IMPRESSION: Small joint effusion. Popliteal cyst. 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 No evidence of a ny significant meniscal tear. No fracture. Mild subcutaneous edema around the knee.
== END | disposition home or self-care (01) ==
LOC: RADMRIMAIN 11:57
PROVIDERS: ATTEND Orthopaedic Surgery
DX: M47.817 Spondylosis without myelopathy or radiculopathy, lumbosacral region (principal); M17.11 Unilateral primary osteoarthritis, right knee; M71.21 Synovial cyst of popliteal space [Baker], right knee; M25.461 Effusion, right knee
CPT/HCPCS: 72148

== ENCOUNTER → 2021-09-17 | Outpatient (CLI) | payer MEDICARE ==
--- NOTE | 2021-09-18 06:56 | US ---
EXAMINATION TYPE: US kidneys/renal and bladder DATE OF EXAM: 09/17/2021 COMPARISON: US, CT CLINICAL HISTORY: C64.1 RENAL CA- RIGHT. Hx renal CA. Hx cryoablation in 2017. Hx kidney stones. EXAM MEASUREMENTS: Right Kidney: 11.5 x 6.5 x 5.0 cm Left Kidney: 12.4 x 5.5 x 6.2 cm Right Kidney: Renal pelvis appears dilated. Hyperechoic focus seen lower pole: 1.0 x 0.9 x 0.7 cm. B orders appear irregular laterally- as seen on prior exam. Left Kidney: Appears slightly enlarged versus upper limits of normal. Hyperechoic focus seen lower po le: 0.4 x 0.4 x 0.4 cm. Anechoic area seen upper pole: 0.9 x 1.0 x 0.8 cm. Bladder: Appears anechoic. Bilateral Jets seen: Yes IMPRESSION: 1. Bilateral nephrolithiasis. 2. Fullness of the right renal collecting system without charisma hydronephrosis at this time.
== END | disposition home or self-care (01) ==
LOC: RADUSWWP 15:29
PROVIDERS: ATTEND Urology
DX: C64.1 Malignant neoplasm of right kidney, except renal pelvis (principal); N20.0 Calculus of kidney
CPT/HCPCS: 76770

== ENCOUNTER → 2022-02-04 | Outpatient (CLI) | payer MEDICARE ==
--- NOTE | 2022-02-04 16:25 | P.PN ---
Progress Note - Text Progress Note Date: 02/04/22 On 02/04/2022, on seeing the patient for a follow-up. The patient is doing extremely well. She was in [place] and following that she went [place]. She is still using her CPAP and she is very compliant. She is a known case of severe obstructive sleep apnea with an AHI of 43.6 and the patient remains on a Pap machine at a minimum pressure of 5 and a maximum pressure of 20. Since her last evaluation, the patient has lost approximately 5 pounds. H extremely well. She is using the Airfit N30 nasal mask and she is quite happy with the mask seals and the comfort of the mask off first. She's been averaging around 7.6 hours of APAP use per night and her compliancy for more than 4 hours above 90%. Average pressure delivered vitamin she is on 10.7. Leak is in order of 11 L per minute and her AHI is down to 1.2. No hypersomnia and sleepiness during the day. No tiredness. Does not take any naps. No snoring. No chest pain or shortness of breath. No nighttime heartburn. Her treatment is been successful and the machine is functional. Her BP is 128/69 with a pulse of 87 and the respiration of 16 with a body mass index of 30.2. [place] score is at 6. Height is 5 feet and 5 inches and the oxygen saturation is 96%. The patient appeared well nourished and normally developed. Vital signs as documented. Head exam is unremarkable. No scleral icterus or corneal arcus noted. Neck is without jugular venous distension, thyromegaly, or carotid bruits. Carotid upstrokes are brisk bilaterally. Lungs are clear to auscultation and percussion. Cardiac exam reveals the PMI to be normally sized and situated. Rhythm is regular. First and second heart sounds normal. No murmurs, rubs or gallops. Abdominal exam reveals normal bowel sounds, no masses, no organomegaly and no aortic enlargement. Extremities are nonedematous and both femoral and pedal pulses are normal.Examination of the skin revealed no evidence of significant rashes, suspicious appearing nevi or other concerning lesions.Neurologically, the patient is awake and alert and the patient does not have any focal neurological deficit. Cranial nerves are essentially intact. Assessment Severe obstructive sleep apnea with an AHI of 43. The patient continues to receive successful APAP therapy. Hypersomnia, recovered Snoring recovered History of chronic cough, likely ALLERGIC Diabetes mellitus unsure obesity Hypertension Hyperlipidemia Hypertension which is well-controlled and the patient is on a combination of losartan and amlodipine. Plan Refill supplies Encourage further weight loss Continue using the same CPAP machine and the same pressures and the treatment successful for now Clinically stable See back in 1 year's time in follow-up earlier if needed.
== END ==
LOC: SLEEP 15:59
PROVIDERS: ATTEND Internal Medicine Critical Care Medicine
DX: G47.33 Obstructive sleep apnea (adult) (pediatric) (principal); Z99.89 Dependence on other enabling machines and devices; E11.9 Type 2 diabetes mellitus without complications; I10 Essential (primary) hypertension; E78.5 Hyperlipidemia, unspecified

== ENCOUNTER → 2022-03-20 | Outpatient (CLI) | payer MEDICARE ==
--- NOTE | 2022-03-20 11:52 | BD ---
EXAMINATION TYPE: Axial Bone Density DATE OF EXAM: 03/20/2022 COMPARISON: DEXA bone scan 2018 CLINICAL HISTORY: 66 year old Female. ICD-10 CODE: M85.851 disorder of bone Height: 65 Weight: 184.0 FRAX RISK QUESTIONS: Alcohol (3 or more units per day): no Family History (Parent hip fracture): yes Glucocorticoids (More than 3mos): no (Ex: prednisone, prednisolone, methylprednisolone, dexamethasone, and hydrocortisone). History of Fracture in Adulthood: no Secondary Osteoporosis: 1. Type 1 Diabetes: no 2. Hyperthyroidism: no 3. Menopause before 45: no 4. Malnutrition: no 5. Chronic liver disease: no Rheumatoid Arthritis: no Current Tobacco Use: no RISK FACTORS HISTORY OF: Surgery to Spine/Hip(right/left)/Wrist (right/left): no Family History of Osteoporosis: no Active: no Diet low in dairy products/other sources of calcium: no Postmenopausal woman: yes Lost more than 2 inches in height since high school: no MEDICATIONS: Additional History: EXAM MEASUREMENTS: Bone mineral densitometry was performed using the [employer] System. Bone mineral density as measured about the Lumbar spine is: ----- L1-L4(G/cm2): 1.363 T Score Values are as follows: ----- L1: 0.8 ----- L2: 0.4 ----- L3: 1.9 ----- L4: 2.6 ----- L1-L4: 1.5 Bone mineral density : Bone mineral density about the R hip (g/cm2): 0.878 Bone mineral density about the L hip (g/cm2): 0.908 T Score values are as follows: -----R Neck: -1.1 -----L Neck: -0.9 -----R Total: -0.1 -----L Total: 0.3 Bone mineral density : FRAX%s: The graph provided illustrates a 14.2% chance for a major osteoporotic fx and a 1.6% chance f or the hips probability for fx in 10 years time. IMPRESSION: Osteopenia (T Score between -2.5 and -1) remains present. There is slightly increased risk of fracture and the patient may be considered for treatment. Re-Screen 2-5 years. NOTE: T-SCORE=SD OF THE YOUNG ADULT MEAN.
--- NOTE | 2022-03-21 19:08 | MM ---
Reason for Exam: Screening (asymptomatic). Last screening mammogram was performed 12 month(s) ago. Patient History: Menarche at age 11. First Full-Term at age 23. Left ovary removed at age 49. Right ovary removed at age 49. Hysterectomy at age 49. Postmenopausal. Patient has history of breast feeding. Other cancer, age 61. Estrogen, starting at age 50 for 14 years. Paternal aunt had breast cancer, age 60. Risk Values: Zuri 5 year model risk: 1.9%. NCI Lifetime model risk: 6.2%. Prior Study Comparison: 07/03/2016 Bilateral Screening Mammogram, [facility]. 09/16/2017 Bilateral Screening Mammogram, [facility]. 09/22/2018 Bilateral Screening Mammogram, [facility]. 12/27/2019 Bilateral Screening Mammogram, [facility]. 03/14/2021 Bilateral Screening Mammogram, [facility]. Tissue Density: There are scattered fibroglandular densities. Findings: Analyzed By CAD. There is no suspicious group of microcalcifications or new suspicious mass in either breast. Overall Assessment: Negative, BI-RAD 1 Management: Screening Mammogram of both breasts in 1 year. A clinical breast exam by your physician is recommended on an annual basis and results should be correlated with mammographic findings. Electronically signed and approved by: Kt Jeffers DO
== END | disposition home or self-care (01) ==
LOC: RADMAMWWP 10:09
PROVIDERS: ATTEND Internal Medicine
DX: Z12.31 Encounter for screening mammogram for malignant neoplasm of breast (principal); M85.851 Other specified disorders of bone density and structure, right thigh; Z78.0 Asymptomatic menopausal state; Z80.3 Family history of malignant neoplasm of breast
CPT/HCPCS: 77063; 77067; 77080

== ENCOUNTER 2022-04-11 06:32 | Day surgery (SDC) | payer MEDICARE ==
[2022-04-10 09:16] VITALS: BMI 29.9
[~2022-04-11 06:32] MED LIST changes: +LIDOCAINE 1% (10MG/ML) FOR IV START INTRADERMA PRN; -LIDOCAINE 1% 20 ML VIAL (10MG/ML) FOR IV START INTRADERMA PRN
[2022-04-11 07:04] VITALS: TEMP 97.7
[2022-04-11 07:05] LABS: Glucose,Whole Blood 106 mg/dL (70-110)
[2022-04-11] MEDS ORDERED: PROPOFOL 10 MG/ML 20 ML VIAL IV ONE (07:21)
--- NOTE | 2022-04-11 07:42 | P.PCN ---
Date of Procedure: 04/11/22 Procedure(s) Performed: BRIEF HISTORY: Patient is a 66-year-old pleasant white female scheduled for an elective colonoscopy as a part of screening for colorectal neoplasia and family history of colon cancer. Her father was diagnosed with colon cancer as well as paternal grandmother in the 60s and 70s respectively PROCEDURE PERFORMED: Colonoscopy. PREOPERATIVE DIAGNOSIS: Screening for colon cancer and family history of colon cancer. IV sedation per Anesthesia. PROCEDURE: After informed consent was obtained, the patient, was brought into the endoscopy unit. IV sedation was administered by Anesthesia under continuous monitoring. Digital rectal examination was normal. Initially the Olympus CF-160 flexible video colonoscope was then inserted in the rectum, gradually advanced into the cecum without any difficulty. Careful examination was performed as the scope was gradually being withdrawn. Ileocecal valve and the appendiceal orifice were visualized and appeared normal. Prep was excellent. Mucosa of the cecum, ascending colon, transverse colon, descending colon, sigmoid colon, and rectum appeared normal. Scattered sigmoid diverticulosis. Retroflexion was performed in the rectum and no lesions were seen. The patient tolerated the procedure well. IMPRESSION: Normal-appearing colon from rectum to cecum with no evidence of colorectal neoplasia. Scattered sigmoid diverticulosis. RECOMMENDATIONS: Findings of this examination were discussed with the patient as well as her family. She was advised to have a repeat colonoscopy in 5 years from now because of the family history of colon cancer.
[2022-04-11 07:48] VITALS: RESP 16
[2022-04-11 07:56] LABS: Glucose,Whole Blood 102 mg/dL (70-110)
[2022-04-11 08:02] VITALS: BP 154/74; PULSE 71
== END 2022-04-11 08:23 | disposition home or self-care (01) ==
LOC: ORWHC2ENDO 06:32
PROVIDERS: ATTEND Internal Medicine Gastroenterology
DX: Z12.11 Encounter for screening for malignant neoplasm of colon (principal); K57.30 Diverticulosis of large intestine without perforation or abscess without bleeding; Z80.0 Family history of malignant neoplasm of digestive organs
CPT/HCPCS: J2704; G0105; 45378

== ENCOUNTER → 2022-06-18 | Outpatient (CLI) | payer MEDICARE ==
[2022-06-19 01:10] LABS: Phosphorus 3.9 mg/dL (2.4-5.1)
[2022-06-19 01:50] LABS: African American GFR (CKD) 80.3 (60.0-200.0); Calcium 10.5 mg/dL (8.7-10.3); Carbon Dioxide 27.4 mmol/L (20.0-27.5); Non-African American GFR(CKD) 69.3 (60.0-200.0); Uric Acid 4.7 mg/dL (2.9-7.7)
== END | disposition home or self-care (01) ==
LOC: LABWHC1 12:43
PROVIDERS: ATTEND Urology
DX: N20.2 Calculus of kidney with calculus of ureter (principal)
CPT/HCPCS: 36415; 82310; 82374; 82435; 82565; 83970; 84100; 84550

== ENCOUNTER → 2022-06-20 | Outpatient (CLI) | payer MEDICARE ==
[2022-06-21 02:39] LABS: Calcium 10.3 mg/dL (8.7-10.3); Carbon Dioxide 25.5 mmol/L (20.0-27.5); Non-African American GFR(CKD) 74.2 (60.0-200.0); Uric Acid 4.6 mg/dL (2.9-7.7)
[2022-06-21 03:01] LABS: Phosphorus 3.7 mg/dL (2.4-5.1)
[2022-06-21 19:55] LABS: Calcium 24 Hour,Urine 457.7 mg/24Hr (100.0-300.0); Potassium 24 Hour,Urine 97.1 mmol/24Hr (25.0-120.0); Uric Acid 24 Hour,Urine 0.59 g/24Hr (0.25-0.75)
[2022-06-21 19:56] LABS: Creatinine 24 Hour,Urine 1.68 g/24Hr (0.80-1.80)
== END | disposition home or self-care (01) ==
LOC: LABWHC1 14:43
PROVIDERS: ATTEND Urology
DX: N20.0 Calculus of kidney (principal)
CPT/HCPCS: 36415; 81003; 81050; 82310; 82340; 82374; 82435; 82507; 82565; 82570; 83735; 83945; 83970; 84100; 84105; 84133; 84300; 84550; 84560

== ENCOUNTER → 2022-12-17 | Outpatient (CLI) | payer MEDICARE ==
--- NOTE | 2022-12-18 08:52 | US ---
EXAMINATION TYPE: US kidneys/renal and bladder DATE OF EXAM: 12/17/2022 COMPARISON: US CLINICAL INDICATION: Female, 67 years old with history of C64.1 MALIGNANT NEOPLASM OF RIGHT KIDNEY, E XCEPT R; H/O right renal CA removal, H/O renal stones, H/O lithotripsy on the right EXAM MEASUREMENTS: Right Kidney: 11.5 x 4.7 x 5.9 cm Left Kidney: 11.9 x 6.5 x 5.7 cm Right Kidney: No evidence of hydro, abnormal contour lower/lateral portion due to prior cancer remova l Left Kidney: No evidence of hydro, possible calculi scattered at lower pole, largest= 6mm/ Hypoechoic lesion upper pole= 1.0 x 0.7 x 1.1 cm, similar in appearance when compare to prior Bladder: wnl Bilateral Jets seen: Yes There is no evidence for hydronephrosis at this point in time. No nephrolithiasis is seen. The urin yamini bladder is anechoic. Bilateral ureteral jets are seen. IMPRESSION: 1. No evidence for recurrent mass right kidney. 2. Hypoechoic lesion upper pole left kidney measures 1.0 x 1.1 cm and is unchanged from prior study. 3. Nonobstructing left-sided nephrolithiasis.
== END | disposition home or self-care (01) ==
LOC: RADUSWWP 16:00
PROVIDERS: ATTEND Urology
DX: C64.1 Malignant neoplasm of right kidney, except renal pelvis (principal); N20.0 Calculus of kidney; N28.89 Other specified disorders of kidney and ureter
CPT/HCPCS: 76770

== ENCOUNTER → 2023-03-25 | Outpatient (CLI) | payer MEDICARE ==
--- NOTE | 2023-03-26 10:15 | MM ---
Reason for Exam: Screening (asymptomatic). Last screening mammogram was performed 12 month(s) ago. Patient History: Menarche at age 11. First Full-Term at age 23. Left ovary removed at age 49. Right ovary removed at age 49. Hysterectomy at age 49. Postmenopausal. Patient has history of breast feeding. Other cancer, age 61. Estrogen, starting at age 50 for 14 years. Paternal aunt had breast cancer, age 60. Risk Values: Zuri 5 year model risk: 1.9%. NCI Lifetime model risk: 5.9%. Prior Study Comparison: 12/27/2019 Bilateral Screening Mammogram, [facility]. 03/14/2021 Bilateral Screening Mammogram, [facility]. 03/20/2022 Bilateral MG 3D screening mammo w/cad, [facility]. Tissue Density: The breast tissue is heterogeneously dense. This may lower the sensitivity of mammography. Findings: Analyzed By CAD. There is no suspicious group of microcalcifications or new suspicious mass in either breast. Stable asymmetric density in the left breast. Benign calcifications bilaterally. Overall Assessment: Benign, BI-RAD 2 Management: Screening Mammogram of both breasts in 1 year. . Patient should continue monthly self-breast exams. A clinical breast exam by your physician is recommended on an annual basis. This exam should not preclude additional follow-up of suspicious palpable abnormalities. Note on Zuri scores and lifetime risk: 1. A Zuri score greater than 3% is considered moderate risk. If this is the case, consider specialist referral to assess eligibility for a risk reducing agent. 2. If overall lifetime risk for the development of breast cancer is 20% or higher, the patient may qualify for future screening with alternating mammogram and breast MRI. Electronically signed and approved by: Marcus Fleming M.D. Radiologis
== END | disposition home or self-care (01) ==
LOC: RADMAMWWP 11:18
PROVIDERS: ATTEND Internal Medicine
DX: Z12.31 Encounter for screening mammogram for malignant neoplasm of breast (principal); N28.1 Cyst of kidney, acquired; Z78.0 Asymptomatic menopausal state; Z80.3 Family history of malignant neoplasm of breast
CPT/HCPCS: 77063; 77067

== ENCOUNTER → 2023-04-14 | Outpatient (CLI) | payer MEDICARE ==
--- NOTE | 2023-04-14 16:56 | PN ---
PROGRESS NOTE DATE OF SERVICE: 04/14/2023 SUBJECTIVE: This patient is known to have severe symptomatic LAURA with an AHI of 43.6. The patient is coming in for annual check. She remains on APAP therapy, pressures of 5/20 cm of water. She is very compliant to CPAP therapy and she takes it whenever she travels. She was in [place] and she took her machine with her and she utilized the machine effectively. Her treatment has been very successful with compliance in order of 100%, averaging around 8.3 hours of CPAP use per night. Average pressure delivered by the machine around 10.1 cm. Leak is 4 L/minute and AHI is down to 1.2. She is using the AirFit N30 small size nasal mask. No hypersomnia or sleepiness during the day. No new complaints otherwise for now. PHYSICAL EXAMINATION: VITAL SIGNS: Her current vitals, blood pressure is 153/73, pulse 90, respirations 16, temperature 98.3, weight is 173, which is less compared to last year. Oxygen pulse ox is 97%. GENERAL APPEARANCE: Calm, comfortable. HEAD: Atraumatic, normocephalic. NECK: Supple. No JVD. No goiter or neck masses. LUNGS: Clear to auscultation. HEART: Sounds regular rate and rhythm. Normal S1, S2. No S3, no murmurs. ABDOMEN: Soft, nontender. No organomegaly. EXTREMITIES: No edema. No cyanosis or clubbing. NEUROLOGIC: Awake, alert, there is no focal neurological deficit. IMPRESSION: 1. Severe obstructive sleep apnea with an AHI of 43.6, effectively treated with CPAP. 2. Chronic hypersomnia, recovered. 3. Diabetes mellitus, type 2. 4. Hypertension. 5. Hyperlipidemia. PLAN: Continue APAP therapy at the same pressure setting of 5/20 cm of water. Refill supplies including the ET tube, and the AirFit N30 nasal mask. Encourage weight loss. Maintain sleep hygiene measures. See me back in followup in 30 to 90 days. Treatment is successful for now. No active issues. MMODL / IJN: [id number] /
== END ==
LOC: 3 N SLEEP 14:39
PROVIDERS: ATTEND Internal Medicine Critical Care Medicine
DX: G47.33 Obstructive sleep apnea (adult) (pediatric) (principal); G47.10 Hypersomnia, unspecified; E11.9 Type 2 diabetes mellitus without complications; I10 Essential (primary) hypertension; E78.5 Hyperlipidemia, unspecified; Z99.89 Dependence on other enabling machines and devices; Z79.84 Long term (current) use of oral hypoglycemic drugs; Z79.899 Other long term (current) drug therapy; Z79.85 Long-term (current) use of injectable non-insulin antidiabetic drugs
CPT/HCPCS: 99212

== ENCOUNTER → 2023-06-26 | Outpatient (CLI) | payer MEDICARE ==
--- NOTE | 2023-06-26 11:39 | XR ---
2 views right tibia and fibula, 3 views right ankle and 3 views right foot. DATE: 06/26/2023. COMPARISON: None available. CLINICAL HISTORY: Lower leg pain and swelling for 2 weeks after trauma. FINDINGS: There is no fracture, subluxation or dislocation. There is mild degenerative joint space narrowing the first metatarsophalangeal joint. The joint space s otherwise appears preserved. There is a small plantar calcaneal heel spur. IMPRESSION: No acute osseous abnormalities.
== END | disposition home or self-care (01) ==
LOC: RADXRMAIN 09:58
PROVIDERS: ATTEND Internal Medicine
DX: M79.89 Other specified soft tissue disorders (principal); M25.471 Effusion, right ankle

== ENCOUNTER → 2023-09-10 | Outpatient (CLI) | payer MEDICARE ==
--- NOTE | 2023-09-10 16:00 | XR ---
EXAMINATION TYPE: XR chest 2V DATE OF EXAM: 09/10/2023 COMPARISON: None HISTORY: 68-year-old female R05.9, cough TECHNIQUE: Frontal and lateral views FINDINGS: Heart normal size. Aorta and pulmonary vasculature within normal limits. No consolidation or pleural effusion. IMPRESSION: No acute cardiopulmonary process.
== END | disposition home or self-care (01) ==
LOC: RADXRMAIN 12:09
PROVIDERS: ATTEND Internal Medicine
DX: R05.9 Cough, unspecified (principal); J40 Bronchitis, not specified as acute or chronic
CPT/HCPCS: 71046

== ENCOUNTER → 2023-11-12 | Outpatient (CLI) | payer MEDICARE ==
--- NOTE | 2023-11-12 10:47 | CT ---
EXAMINATION TYPE: CT facial bones wo con DATE OF EXAM: 11/12/2023 COMPARISON: None HISTORY: 68-year-old female S09.93XA UNSPECIFIED INJURY OF FACE, INITIAL ENCOU, Fall, Lt side bruisin g swelling orbits through jaw TECHNIQUE: CT of the facial bones without contrast. Coronal and sagittal reconstructions performed. CT DLP: 768 mGycm Automated exposure control for dose reduction was used. FINDINGS: There is left-sided premaxillary soft tissue swelling. A focal subcutaneous hematoma measures 1.5 cm. Contiguous left-sided periorbital and preseptal soft tissue swelling. Underlying globes appear symme tric and intact. No abnormality of the rectal bulbar structures. No orbital, nasal bone, facial bone, mandibular fractures seen. The TMJs, pterygoid plates, and zygomatic arches are intact. Only trace mucosal thickening scattered within the ethmoid air cells. IMPRESSION: LEFT-SIDED PERIORBITAL, PRESEPTAL, AND PREMAXILLARY SOFT TISSUE SWELLING. THERE IS AN ASSOCIATED 1.5 CM SOFT TISSUE HEMATOMA ALONG THE LEFT CHEEK. No underlying acute facial bone fracture seen.
== END | disposition home or self-care (01) ==
LOC: RADCTMAIN 09:29
PROVIDERS: ATTEND Internal Medicine
DX: H05.222 Edema of left orbit (principal); S09.93XA Unspecified injury of face, initial encounter; M79.89 Other specified soft tissue disorders; W19.XXXA Unspecified fall, initial encounter
CPT/HCPCS: 70486

== ENCOUNTER → 2024-04-06 | Outpatient (CLI) | payer MEDICARE ==
--- NOTE | 2024-04-08 08:00 | MR ---
EXAMINATION TYPE: MR knee LT wo con DATE OF EXAM: 04/06/2024 COMPARISON: Outside bilateral knee x-ray March 30, 2024 HISTORY: Lt knee pain and swelling for months TECHNIQUE: Multiplanar, multisequence images of the knee is performed without IV contrast. FINDINGS: MEDIAL MENISCUS: Subtle increased signal posterior horn does not definitively extend to articular coleen face. LATERAL MENISCUS: Lateral extrusion lateral meniscus. Truncated anterior horn with abnormal signal ex tending to articular surface. Horizontal increased signal posterior horn does not definitively extend to articular surface. CRUCIATE LIGAMENTS: The anterior and posterior cruciate ligaments are intact and unremarkable. COLLATERAL LIGAMENTS: The medial collateral ligament and lateral collateral ligament complex are inta ct and unremarkable. EXTENSOR MECHANISM: Visualized quadriceps and patellar tendons are intact. EFFUSION: Large size suprapatellar joint effusion. POPLITEAL CYST: Large size popliteal/cheng cyst with some adjacent ill-defined fluid extending teletypesetter monitor iorly and inferiorly. Increased intermediate signal flexor tendon Posterior aspect of the distal lateral femoral condyle TRICOMPARTMENT SPACES: Tricompartment joint space loss which is moderate to severe inferior patellofe moral compartment. Mild tricompartment spurring. CARTILAGE: Fissuring and cartilaginous loss along the posterior patellar pole. Some tricompartmental cartilaginous loss is present. BONE MARROW SIGNAL: No focal abnormal marrow signal is appreciated. OTHER: No additional significant abnormality is appreciated. IMPRESSION: 1. Large-sized suprapatellar joint effusion. 2. Large sized leaking popliteal cyst. Proximal popliteal tendinosis. 3. Tricompartmental degenerative changes most prominent patellofemoral compartment as detailed above. 4. Full-thickness tear anterior horn of lateral meniscus. 5. Intrasubstance tears posterior horns of lateral and medial menisci. [facility], , 04/08/2024 7:58 AM
== END | disposition home or self-care (01) ==
LOC: RADMRIMAIN 13:12
PROVIDERS: ATTEND Orthopaedic Surgery
DX: M25.562 Pain in left knee

== ENCOUNTER → 2024-04-07 | Outpatient (CLI) | payer MEDICARE ==
--- NOTE | 2024-04-07 12:59 | US ---
EXAMINATION TYPE: US carotid duplex BILAT DATE OF EXAM: 04/07/2024 COMPARISON: NONE CLINICAL INDICATION: Female, 68 years old with history of I65.23 CAROTID STENOSIS; rule out stenosis TECHNIQUE: Grayscale, color Doppler and spectral Doppler evaluation of the bilateral carotid systems and vertebral arteries.Indirect Doppler criteria was utilized. FINDINGS: EXAM MEASUREMENTS: RIGHT: Peak Systolic Velocity (PSV) cm/sec ----- Right CCA: 83.1 ----- Right ICA: 84.2 ----- Right ECA: 153.0 ICA/CCA ratio: 1.0 RIGHT: End Diastole cm/sec ----- Right CCA: 16.0 ----- Right ICA: 25.9 ----- Right ECA: 17.0 LEFT: Peak Systolic Velocity (PSV) cm/sec ----- Left CCA: 79.8 ----- Left ICA: 80.1 ----- Left ECA: 155.5 ICA/CCA ratio: 1.0 LEFT: End Diastole cm/sec ----- Left CCA: 14.9 ----- Left ICA: 17.5 ----- Left ECA: 17.5 VERTEBRALS (direction of flow): Right Vertebral: Antegrade Left Vertebral: Antegrade Rhythm: Normal CAMP ADVISOR NOTES: No plaque seen. No elevated velocities IMPRESSION: No significant hemodynamic stenosis. Criteria for Assigning % of Stenosis / Diameter reduction (Estimation based on the indirect measurements of the internal carotid artery velocities (ICA PSV). 1. Normal (no stenosis)=ICA PSV < 125 cm/s: ratio < 2.0: ICA EDV<40 cm/s. 2. Less than 50% stenosis=ICA PSV < 125 cm/s: ratio < 2.0: ICA EDV<40 cm/s. 3. 50 to 69% stenosis=ICA PSV of 125 to 230 cm/s: ration 2.0 ? 4.0: ICA EDV 40-100 cm/s. 4. Greater than 70% stenosis to near occlusion= ICA PSV > 230 cm/s: ratio > 4.0: ICA EDV > 100 cm/s. 5. Near occlusion= ICA PSV velocities may be low or undetectable: variable ratio and ICA EDV. 6. Total occlusion=unable to detect flow. [facility], , 04/07/2024 12:57 PM
--- NOTE | 2024-04-07 17:01 | CA ---
Transthoracic Echo Report Name: Jami Lemus Age: 68 Gender: F : 1955 Exam Date: 04/07/2024 14:39 Exam Location: [facility] Ht (in): 65 Wt (lb): 172 Ordering Physician: Yoel Garcia MD Attending/Referring Phys: Maggie Pedraza [facility] [employer] S[employer] Codie Jara RDCS Procedure CPT: Indications: Z86.79 Cardiac Hx: Technical Quality: Contrast 1: Total Dose (mL): Contrast 2: Total Dose (mL): MEASUREMENTS (Male / Female) Normal Values 2D ECHO LV Diastolic Diameter PLAX 3.5 cm 4.2 - 5.9 / 3.9 - 5.3 cm LV Systolic Diameter PLAX 1.9 cm IVS Diastolic Thickness 1.3 cm 0.6 - 1.0 / 0.6 - 0.9 cm LVPW Diastolic Thickness 1.3 cm 0.6 - 1.0 / 0.6 - 0.9 cm LV Relative Wall Thickness 0.7 RV Internal Dim ED PLAX 3.6 cm LVOT Diameter 1.6 cm LA Volume 71.0 cm??? 18 - 58 / 22 - 52 cm??? LA Volume Index 37.1 cm???/m??? 16 - 28 cm???/m??? M-MODE Aortic Root Diameter MM 2.2 cm LA Systolic Diameter MM 3.5 cm LA Ao Ratio MM 1.6 AV Cusp Separation MM 1.7 cm DOPPLER AV Peak Velocity 217.1 cm/s AV Peak Gradient 18.8 mmHg AV Mean Velocity 156.0 cm/s AV Mean Gradient 10.7 mmHg AV Velocity Time Integral 38.6 cm LVOT Peak Velocity 157.0 cm/s LVOT Peak Gradient 9.9 mmHg LVOT Velocity Time Integral 30.0 cm LVOT Stroke Volume 62.6 cm??? LVOT Stroke Volume Index 33.7 ml/m??? AV Area Cont Eq vti 1.6 cm??? AV Area Cont Eq pk 1.5 cm??? MV Area PHT 7.1 cm??? Mitral E Point Velocity 73.4 cm/s Mitral A Point Velocity 114.2 cm/s Mitral E to A Ratio 0.6 MV Deceleration Time 106.6 ms MV E' Velocity 5.1 cm/s Mitral E to MV E' Ratio 14.4 TR Peak Velocity 240.5 cm/s TR Peak Gradient 23.1 mmHg Right Ventricular Systolic Press 28.1 mmHg FINDINGS Left Ventricle Moderately increased left ventricular wall thickness. Left ventricular cavity size normal. Normal left ventricular systolic function with no obvious regional wall motion abnormalities. Left ventricular ejection fraction is estimated at 55-60 %. Grade 1 diastolic dysfunction. Right Ventricle Mild right ventricular dilatation. Right ventricular systolic pressure within normal limits. Right Atrium Normal right atrial size. Left Atrium Moderately increased left atrial volume. Mildly increased left atrial area. Mitral Valve Structurally normal mitral valve. Mild mitral annular calcification. Trace mitral regurgitation. Aortic Valve Trileaflet aortic valve. Mild aortic stenosis with a peak gradient of 19 mmHg and a mean gradient of 11mild aortic regurgitation. mmHg. Tricuspid Valve Structurally normal tricuspid valve. Mild tricuspid regurgitation. Pulmonic Valve Structurally normal pulmonic valve. Pericardium No pericardial effusion. Aorta Normal size aortic root and proximal ascending aorta. CONCLUSIONS Normal LV function Mild aortic stenosis Previewed by: Dr. Javier Morillo MD (Electronically Signed) Final Date: 07 April 2024 17:00
--- NOTE | 2024-04-08 09:38 | MM ---
Reason for Exam: Screening (asymptomatic). Last mammogram was performed 1 year(s) and 1 month(s) ago. Patient History: Menarche at age 11. First Full-Term at age 23. Left ovary removed at age 49. Right ovary removed at age 49. Hysterectomy at age 49. Postmenopausal. Patient has history of breast feeding. Other cancer, age 61. Estrogen, starting at age 50 for 14 years. Paternal aunt had breast cancer, age 60. Risk Values: Zuri 5 year model risk: 1.9%. NCI Lifetime model risk: 5.6%. Prior Study Comparison: 03/14/2021 Bilateral Screening Mammogram, [facility]. 03/20/2022 Bilateral MG 3D screening mammo w/cad, [facility]. 03/25/2023 Bilateral MG 3D screening mammo w/cad, [facility]. Tissue Density: The breasts are almost entirely fatty. Findings: Analyzed By CAD. Right breast: There is no suspicious group of microcalcifications or new suspicious mass. Left breast: There is no suspicious group of microcalcifications or new suspicious mass. Overall Assessment: Negative, BI-RAD 1 Management: Screening Mammogram of both breasts in [address] [facility] will attempt to contact patient to return for supplemental views and ultrasound if indicated. Patient should continue monthly self-breast exams. A clinical breast exam by your physician is recommended on an annual basis. This exam should not preclude additional follow-up of suspicious palpable abnormalities. Note on Zuri scores and lifetime risk: 1. A Zuri score greater than 3% is considered moderate risk. If this is the case, consider specialist referral to assess eligibility for a risk reducing agent. 2. If overall lifetime risk for the development of breast cancer is 20% or higher, the patient may qualify for future screening with alternating mammogram and breast MRI. [facility], , 04/08/2024 8:50 AM. Electronically signed and approved by: Kt Jeffers DO
== END | disposition home or self-care (01) ==
LOC: RADMAMWWP 12:02
PROVIDERS: ATTEND Internal Medicine
DX: Z12.31 Encounter for screening mammogram for malignant neoplasm of breast
CPT/HCPCS: 77063; 77067; 93306; 93880

== ENCOUNTER → 2024-04-15 | Outpatient (CLI) | payer MEDICARE ==
--- NOTE | 2024-04-24 22:10 | BD ---
EXAMINATION TYPE: Axial Bone Density DATE OF EXAM: 04/15/2024 CLINICAL HISTORY: 68 years old Female. ICD-10 CODE: M85.80 OSTEO Height: 5 ft 4 in Weight: 170 FRAX RISK QUESTIONS: Alcohol (3 or more units per day): no Family History (Parent hip fracture): no Glucocorticoids (More than 3mos): no (Ex: prednisone, prednisolone, methylprednisolone, dexamethasone, and hydrocortisone). History of Fracture in Adulthood: no Secondary Osteoporosis: 1. Type 1 Diabetes: type 2 2. Hyperthyroidism: no 3. Menopause before 45: no 4. Malnutrition: no 5. Chronic liver disease: no Rheumatoid Arthritis: no Current Tobacco Use: no RISK FACTORS HISTORY OF: Surgery to Spine/Hip(right/left)/Wrist (right/left): no MEDICATIONS: Thyroid Medications: none Osteoporosis Medications: none EXAM MEASUREMENTS: Bone mineral densitometry was performed using the [employer] System. Bone mineral density as measured about the Lumbar spine is: ----- L1-L4(G/cm2): 1.376 T Score Values are as follows: ----- L1: 1.1 ----- L2: 0.9 ----- L3: 2.3 ----- L4: 1.9 ----- L1-L4: 1.6 Z Score Values are as follows: ----- L1: 2.4 ----- L2: 2.2 ----- L3: 3.6 ----- L4: 3.2 ----- L1-L4: 2.9 Bone mineral density has: increased 1.0 % since study of: 2021 Bone mineral density about the R hip (g/cm2): 0.872 Bone mineral density about the L hip (g/cm2): 0.903 T Score values are as follows: -----R Neck: -1.2 -----L Neck: -1.0 -----R Total: -0.3 -----L Total: 0.2 Z Score values are as follows: -----R Neck: 0.3 -----L Neck: 0.5 -----R Total: 0.9 -----L Total: 1.4 Bone mineral density has: decreased -2.0 % since study of: 2021 FRAX%s: The graph provided illustrates a 14.2 % chance for a major osteoporotic fx and a 2.7 % chance for the hips probability for fx in 10 years time. IMPRESSION: Normal (Values between +1 and -1 indicate normal bone mass). Consider repeating this study in 5 year s or sooner if there is some new clinical indication. NOTE: T-SCORE=SD OF THE YOUNG ADULT MEAN. [facility], , 04/24/2024 10:08 PM
== END | disposition home or self-care (01) ==
LOC: RADBDWWP 13:53
PROVIDERS: ATTEND Internal Medicine
DX: M85.89 Other specified disorders of bone density and structure, multiple sites (principal)
CPT/HCPCS: 77080

== ENCOUNTER → 2024-04-20 | Outpatient (CLI) | payer MEDICARE ==
[2024-04-20 15:35] LABS: Anion Gap 10.6 mmol/L (4.00-12.00); Carbon Dioxide 28.4 mmol/L (21.6-31.8); Potassium 3.8 mmol/L (3.5-5.5)
[2024-04-20 15:54] LABS: Basophils # (A) 0.05 X 10*3/uL (0.00-0.10); Eosinophils # (A) 0.15 X 10*3/uL (0.04-0.35); HCT 35.5 % (37.2-46.3); HGB 11.5 g/dL (12.0-15.0); Lymphocytes # (A) 1.69 X 10*3/uL (0.90-5.00); Lymphocytes % (A) 33.3 %; MCH 29.2 pg (27.0-32.0); MCHC 32.4 g/dL (32.0-37.0); MCV 90.1 FL (80.0-97.0); Mean Platelet Volume 10.3 FL (9.5-12.2); Monocytes # (A) 0.36 X 10*3/uL (0.20-1.00); Monocytes % (A) 7.1 %; NRBC Per 100 WBC 0 X 10*3/uL (0.00-0.01); Neutrophils # (A) 2.81 X 10*3/uL (1.80-7.70); Neutrophils % (A) 55.2 %; Platelet Count 404 X 10*3/uL (140-440); RBC 3.94 X 10*6/uL (4.10-5.20); RDW 13.9 % (11.5-14.5); WBC 5.08 X 10*3/uL (4.50-10.00)
== END | disposition home or self-care (01) ==
LOC: LABPAT 11:26
PROVIDERS: ATTEND Orthopaedic Surgery
CPT/HCPCS: 36415; 80051; 85025; 93005

== ENCOUNTER 2024-05-04 08:00 | Day surgery (SDC) | payer MEDICARE ==
--- NOTE | 2024-05-03 16:50 | HP ---
HISTORY AND PHYSICAL DATE OF SURGERY: 05/04/2024. HISTORY OF PRESENT ILLNESS: Jami Lemus is a 68-year-old patient seen with progressive left knee pain. We discussed options regarding treatment. She elected to proceed with left knee arthroscopy. Consent regarding the procedure was obtained. PAST MEDICAL HISTORY: Hypertension, hyperlipidemia, onc-nmnskps-weydjuomk diabetes. PAST SURGICAL HISTORY: Hysterectomy, left shoulder arthroscopy. DAILY MEDICATIONS: 1. Aspirin. 2. Haldol. 3. Amlodipine. 4. Atorvastatin. 5. Losartan. 6. Metformin. ALLERGIES: None reported. SOCIAL HISTORY: She denies tobacco use. PHYSICAL EVALUATION OF THE LEFT KNEE: Range of motion is -3/4 to 110 degrees. There is a large effusion present. She is tender along the medial and lateral joint lines. There is a positive medial Aura's. Positive lateral Aura's. Ligaments are stable. Hip rotation is without pain. Distal neurovascular exam is intact. IMAGING STUDIES: Radiographs of the left knee revealed osteoarthritic changes. MRI of left knee revealed lateral meniscal tear, large effusion, and large popliteal cyst. IMPRESSION: 1. Internal derangement of left knee with lateral meniscal tear. 2. Hypertension. 3. Hyperlipidemia. 4. Tbc-bikdhxp-utmvebhgd diabetes. PLAN: Left knee arthroscopy with partial lateral meniscectomy and debridement. MMODL / IJN: [id number] /
[~2024-05-04 08:00] MED LIST changes: -LACTATED RINGERS 1,000 ML IV SCH; +fentaNYL (PF) 50 MCG/ML 2 ML AMP IVP PRN
[2024-05-04] MEDS: DEXAMETHASONE SOD PHOSPHATE 4 MG/ML 1 ML VIAL IV ONE (08:13)
[2024-05-04] MEDS: ONDANSETRON 4 MG/2 ML VIAL IVP ONE (08:14)
[2024-05-04] MEDS: LACTATED RINGERS 1,000 ML IV SCH (08:14)
[2024-05-04] MEDS: IV FLUID CONTINUATION 1,000 ML IV ONE (08:27)
[2024-05-04] MEDS: MIDAZOLAM 2 MG/2 ML VIAL IV PRN (08:42)
[2024-05-04 08:48] LABS: Glucose,Whole Blood 116 mg/dL (70-110)
[2024-05-04] MEDS ORDERED: LIDOCAINE 1% INJ 10MG/ML (20 ML MDV) ONE (09:30)
[2024-05-04] MEDS ORDERED: PROPOFOL 10 MG/ML 20 ML VIAL IV ONE (09:30)
[2024-05-04] MEDS ORDERED: MIDAZOLAM 2 MG/2 ML VIAL ONE (09:30)
[2024-05-04] MEDS ORDERED: KETOROLAC 15 MG/ML 1 ML VIAL ONE (09:30)
[2024-05-04] MEDS ORDERED: fentaNYL (PF) 50 MCG/ML 2 ML AMP ONE (09:30)
[2024-05-04] MEDS: BUPIVACAINE (PF) 0.25% 30 ML VIAL SQ ONE ×2 (09:52→10:11)
--- NOTE | 2024-05-04 10:24 | P.OP ---
Date of Procedure: 05/04/24 Preoperative Diagnosis: Internal derangement left knee Postoperative Diagnosis: 1. Tear medial and lateral meniscus left knee 2. Grade IV chondromalacia medial femoral condyle left knee 3. Reactive synovitis medial, lateral and suprapatellar compartments left knee 4. Loose body left knee 5. Grade II/III chondromalacia patella left knee Procedure(s) Performed: 1. Arthroscopic partial medial and lateral meniscectomy left knee 2. Arthroscopic microfracture medial femoral condyle left knee 3. Arthroscopic partial synovectomy medial, lateral and suprapatellar compartments left knee 4. Arthroscopic removal loose body left knee 5. Arthroscopic chondroplasty patella left knee Anesthesia: ARIANNEA, local Surgeon: Mert Beauchamp Estimated Blood Loss (ml): 7 Pathology: none sent Condition: stable Disposition: PACU Indications for Procedure: 68-year-old patient seen with progressive left knee pain. After having treatment options discussed, she elected to proceed with arthroscopy. Operative Findings: See description of procedure Description of Procedure: Patient was taken to the operative suite. Patient underwent a general anesthetic by the department of anesthesia. Patient was given preoperative antibiotics. The left lower extremity was placed in a well-padded arthroscopic leg tao. The left leg was prepped and draped in the normal sterile orthopedic fashion. A lateral parapatellar and suprapatellar incision was made. Trochars were inserted. Arthroscopy was initiated. Suprapatellar pouch revealed diffuse thick reactive synovitis. The patellofemoral joint appeared to articulate congruently. There was grade II/III chondromalacia of the patella with some diffuse osteochondral flap tears present. The scope was guided into the medial gutter. No loose bodies or plica were identified the scope was then guided into the medial compartment. A medial parapatellar incision was made. Trocar inserted followed by probe. There was a radial tear posterior horn medial meniscus. There were grade III/IV chondromalacia changes medial femoral condyle with some fairly large osteochondral flap tears present. There was thick reactive synovitis anteriorly. I performed a partial medial meniscectomy getting down to stable meniscal tissue. I performed a chondroplasty medial femoral condyle getting out to stable osteochondral tissue. I performed a partial synovectomy decompressing the thick reactive synovitis anteriorly. I did note an area of grade IV chondromalacia medial femoral condyle weightbearing surface measuring just under centimeter. I reduced a microfracture awl and I performed microfracture to that area of exposed bone penetrating the bone with resultant bleeding at the microfracture site. The residual meniscus was probed and was found to be stable. The residual osteochondral surface was stable. There was good decompression of the synovitis. Scope and probe were then guided into the intercondylar notch. Cruciates were identified, probed and found to be stable. I did note a loose body which measured about 4 x 8 mm. I introduced a pituitary and I was able to remove that loose body without difficulty. The scope and probe were then guided into lateral compartment. There was a complex tear involving the anterior horn and mid body lateral meniscus. There was no significant chondromalacia lateral compartment. There was some thick reactive synovitis anteriorly. I performed a partial lateral meniscectomy getting down to stable meniscal tissue. I performed a partial synovectomy. The residual lateral meniscus was stable. There was good decompression of the synovitis. The scope was in guided back into the suprapatellar compartment. I reduced a motorized shaver into the suprasellar compartment. I performed a chondroplasty of the patella getting down to stable osteochondral tissue. I performed a partial synovectomy. Shaver was removed. The residual osteochondral surface of the patella appeared stable. Instruments were now removed from the joint. The joint was infiltrated with .25% Marcaine. Steri-Strips were applied to the portal sites. Sterile dressings were applied. The patient was placed into a JORGE hose. No tourniquet was utilized. The patient was awakened, transferred to a bed and taken to recovery stable satisfactory condition.
[2024-05-04 10:26] VITALS: TEMP 97.3
[2024-05-04] MEDS: HYDROmorphone 0.5 MG/0.5 ML SYRINGE IVP PRN (10:44)
[2024-05-04 11:07] VITALS: RESP 16
[2024-05-04 11:31] VITALS: BP 149/74; PULSE 77
== END 2024-05-04 12:12 | disposition home or self-care (01) ==
LOC: OR 08:00
PROVIDERS: ATTEND Orthopaedic Surgery
DX: S83.272A Complex tear of lateral meniscus, current injury, left knee, initial encounter (principal); S83.242A Other tear of medial meniscus, current injury, left knee, initial encounter; M94.262 Chondromalacia, left knee; M65.862 Other synovitis and tenosynovitis, left lower leg; I10 Essential (primary) hypertension; E11.9 Type 2 diabetes mellitus without complications; E78.5 Hyperlipidemia, unspecified; G47.33 Obstructive sleep apnea (adult) (pediatric); K58.9 Irritable bowel syndrome, unspecified; F41.9 Anxiety disorder, unspecified; Z79.82 Long term (current) use of aspirin; Z79.85 Long-term (current) use of injectable non-insulin antidiabetic drugs; Z79.84 Long term (current) use of oral hypoglycemic drugs; Z79.899 Other long term (current) drug therapy
CPT/HCPCS: 29880; 29879; 29876; J2250; J1100; J0690; J2405; J2003; J3010; J1885; J2704; J1171; J0665